=== PATIENT | male | born 1955 | race Caucasian/White ===

== ENCOUNTER 2020-04-04 13:34 | Emergency (ER) | payer SELFPAY ==
[2020-04-04 14:08] VITALS: BP 160/85; PULSE 117; RESP 16; TEMP 38.3; O2SAT 96; BMI 31.6
--- NOTE | 2020-04-04 14:27 | XRR_ITS ---
PROCEDURE INFORMATION: Exam: XR Chest, 1 View Exam date and time: 04/04/2020 2:53 PM Age: 64 years old Clinical indication: Type not specified; Patient HX: C/O indigestion; Getting tired easy; Chest pain TECHNIQUE: Imaging protocol: XR of the chest Views: 1 view. COMPARISON: No relevant prior studies available. FINDINGS: Lungs: Unremarkable. No consolidation. Pleural space: Unremarkable. No pleural effusion. No pneumothorax. Heart/Mediastinum: Unremarkable. No cardiomegaly. Bones/joints: Unremarkable. XR/XR chest 1V portable [id number] IMPRESSION: No acute findings.
[2020-04-04 15:19] LABS: Basophils # 0.1 10^3/uL (0.0-0.1); Basophils % 2.1 %; Eosinophils # 0.1 10^3/uL (0.0-0.8); Eosinophils % 1.4 %; Hematocrit 45.2 % (42.0-52.0); Hemoglobin 15.5 g/dL (11.7-16.6); Lymphocytes # 0.7 10^3/uL (0.8-4.8); Lymphocytes % 17.3 %; Mean Corpuscular HGB Conc 34.3 g/dL (30.0-36.0); Mean Corpuscular Hemoglobin 34.5 pg (28.0-34.0); Mean Corpuscular Volume 100.7 fL (80-94); Mean Platelet Volume 12.3 fL (7.4-10.4); Monocytes # 0.6 10^3/uL (0.2-0.9); Monocytes % 12.9 %; Neutrophils # 2.8 10^3/uL (1.8-7.7); Neutrophils % 66.1 %; Nucleated Red Blood Cells % 0 %; Platelet Count 75 10^3/cmm (130-400); Red Blood Count 4.49 10^6/uL (4.1-5.3); Red Cell Distribution Width 16.5 % (12.1-15.1); White Blood Count 4.3 10^3/uL (4.0-10.0)
[2020-04-04 15:40] LABS: Alanine Aminotransferase 125 U/L (0-41); Albumin Level 3.7 g/dL (3.5-5.2); Alkaline Phosphatase 136 IU/L (40-130); Anion Gap 15.7 (5-19); Aspartate Amino Transferase 206 U/L (0-40); Blood Urea Nitrogen 12 mg/dL (8-23); Calcium 9.8 mg/dL (8.5-10.5); Carbon Dioxide 25 mmol/L (22-29); Chloride 100 mmol/L (98-107); Globulin 4.2 g/dL (1.3-4.6); Glomerular Filtration Rate 67.4 mL/min (90-130); Glucose 172 mg/dL (65-115); Osmolality Calculated 284 mOsm/kg (285-295); Potassium 3.7 mmol/L (3.5-5.1); Sodium 137 mmol/L (136-145); Total Bilirubin 1.8 mg/dL (0.15-1.2); Total Protein 7.9 g/dL (6.6-8.7)
[2020-04-04 15:41] LABS: Troponin(5th) Baseline 10 ng/L (0-15)
--- NOTE | 2020-04-04 16:12 | USR_ITS ---
PROCEDURE INFORMATION: Exam: US Abdomen Complete Exam date and time: 04/04/2020 4:17 PM Age: 64 years old Clinical indication: Abdominal pain; Acute; Patient HX: PT here for weakness TECHNIQUE: Imaging protocol: Real-time ultrasound of the abdomen with image documentation. [place] [facility] [place]24/[place] 8:58 AM FINDINGS: Liver: Echodense liver parenchyma suggesting fibrofatty change. Liver measures 20.3 cm long. Gallbladder: Tumefactive sludge layering in dependent aspect of gallbladder along with several shadowing gallstones. There is no obvious gallbladder wall thickening. Common bile duct: Common bile duct measures 5.5 mm. Pancreas: Pancreas not well visualized. Right kidney: Right kidney measures 12.5 x 6.4 x 6.3 cm. No mass. No hydronephrosis. Left kidney: Left kidney measures 10.8 x 6.2 x 6.1 cm. Probable dromedary hump (normal variant) laterally. No hydronephrosis. Spleen: Mildly enlarged spleen measuring 15.8 cm long. Aorta: Aorta not well seen. Aorta measures 1.7 cm in diameter. Inferior vena cava: IVC not well seen. US/US abdomen complete* [id number] IMPRESSION: 1.) Enlarged echodense liver. 2.) Tumefactive sludge and gallstones layering in dependent aspect of gallbladder. 3.) Mildly enlarged spleen. Aorta, pancreas and IVC not well seen.
--- NOTE | 2020-04-04 16:28 | ECG_ITS ---
[facility] Test Date: 2020-04-04 Pat Name: Simeon Roland Department: Room: Gender: Male Finishing Operator: : 1955 Requested By: Pat Sims Order Number: [id number] Cecil MD: Bridget Silva M.D. Measurements Intervals [place] Rate: 110 P: 34 [place]: 138 QRS: 40 QRSD: 88 T: 50 QT: 323 QTc: 438 Interpretive Statements SINUS TACHYCARDIA No previous ECG available for comparison Electronically Signed On 04-04-2020 20:52:49 CDT by Bridget Silva M.D. [id number]
[2020-04-04 17:07] VITALS: BP 179/91; PULSE 110; RESP 40; TEMP 38.8; O2SAT 94
[2020-04-04 17:07] LABS: Troponin 5 2HR 8.82 ng/L (0-15)
[2020-04-04 17:08] LABS: Troponin 5 2HR Delta -1.18 ABS# (0-10)
[2020-04-04] MEDS: magnesium sulfate premix 2 GM/50 ML PIGGYBACK IV (17:23)
[2020-04-04] MEDS: acetaminophen 500 mg Tablet 1000 MG PO (17:23)
[2020-04-04] MEDS: sodium chloride 0.9% 1,000 ML 999 ML IV (17:26)
--- NOTE | 2020-04-04 17:28 | CTR_ITS ---
PROCEDURE INFORMATION: Exam: CT Abdomen And Pelvis With Contrast Exam date and time: 04/04/2020 5:44 PM Age: 64 years old Clinical indication: Abdominal pain; Acute; Prior surgery; Surgery date: 6+ months; Surgery type: Hernia TECHNIQUE: Imaging protocol: Computed tomography of the abdomen and pelvis with intravenous contrast. Radiation optimization: All CT scans at this facility use at least one of these dose optimization techniques: automated exposure control; mA and/or kV adjustment per patient size (includes targeted exams where dose is matched to clinical indication); or iterative reconstruction. Contrast material: OMNI; Contrast volume: 95 ml; Contrast route: INTRAVENOUS (IV); COMPARISON: US abdomen complete* [id number] 04/04/2020 4:09 PM RADIATION DOSE METRICS: Total DLP (mGy-cm): 1420.12 FINDINGS: Liver: Some of the liver margins have a nodular appearance suggesting cirrhosis. Right lobe measures 21 cm long. Heterogeneous liver parenchyma containing innumerable 3-5 mm hypodense areas. Appearance may simply be due to cirrhosis. Another possibility is hepatic peliosis. Metastatic disease or diffuse infiltrating HCC appear unlikely. Gallbladder and bile ducts: There are several 4-5 mm calcified gallstones layering in dependent aspect gallbladder. Pancreas: Normal. No ductal dilation. Spleen: Mildly enlarged spleen measuring 14.7 cm long. Adrenals: Normal. No mass. Kidneys and ureters: 3.2 cm right renal upper pole simple cyst. Stomach and bowel: Mild sigmoid colon diverticulosis changes. Appendix: No evidence of appendicitis. Intraperitoneal space: Unremarkable. No free air. No significant fluid collection. Vasculature: Probable portal hypertension with upper abdominal varices, recanalized umbilical vein and enlarged spleen. Lymph nodes: Unremarkable. No enlarged lymph nodes. Bladder: Unremarkable as visualized. Reproductive: Unremarkable as visualized. Bones/joints: Lower lumbar spine degenerative disc disease, chronic. Soft tissues: Unremarkable. CT/CT abdomen pelvis w con* [id number] IMPRESSION: 1.) No acute process evident. 2.) Cirrhosis and stigmata of portal hypertension. Heterogeneous liver parenchyma as described above. 3.) Gallstones. 4.) 3.2 cm right renal upper pole simple appearing cyst. Mild sigmoid colon diverticulosis changes. COMMENTS: Consistent with the [employer]'s Incidental Findings Committee white paper (J Am Sharri Radiol 2018): Any incidental renal lesion less than 1.0 cm or classified as too small to characterize, or any incidental cystic renal lesion characterized as simple-appearing, is likely benign. No follow-up imaging is recommended for these lesions per consensus recommendations based on imaging criteria. The Radiation Dose CTDIVOL = (mGy): DLP = 1420.12 (mGy-cm)
--- NOTE | 2020-04-04 17:32 | W.ED.WEAKNES ---
HPI - Weakness General: Chief complaint: Weakness Stated complaint: abnormal labs Time Seen by Provider: 04/04/20 15:55 Source: patient and family History of Present Illness: HPI Narrative: Mr. Graham is a nice 64-year-old male who comes in complaining of generalized weakness. He states since he fell on 02 March he is just been progressively getting more weak. His family states he has had a gradual decline to the point he does not want to eat or drink or do anything but sleep. He is unaware that he had a fever until he arrived here. The patient denies any focal headache, neck pain, chest pain, shortness of breath, abdominal pain, back pain, extremity pain or dysuria. Patient states he just feels weak but otherwise he has no other complaints and he is only here because of his family's insistence. Associated symptoms: Reports chills and fever(s); Denies chest pain, confusion, melena, diaphoresis, dysuria, easy bruising, headache(s), nausea, syncope or vomiting Review of Systems Const: Reports: fever(s), chills, body aches, change in appetite, fatigue and malaise; Denies: diaphoresis Eyes: Denies: change in vision, blurry vision, blind spots, photophobia, eye discharge or eye redness ENMT: Denies: throat pain, odynophagia, hoarseness, swelling of lips/tongue, oral sores, ear or mastoid pain, ear discharge, change in hearing or nasal discharge Card: Denies: chest pain, palpitations, irregular heart rhythm, edema, lightheadedness, syncope, pre-syncope, dyspnea on exertion or orthopnea Resp: Denies: dyspnea, productive cough, non-productive cough, wheezing, hemoptysis or chest congestion GI: Denies: abdominal pain, nausea, vomiting, hematemesis, coffee ground emesis, heartburn, diarrhea, constipation, GI cramping, hematochezia or melena : Denies: flank pain, dysuria, urinary frequency, urinary urgency or hematuria Musc: Denies: neck pain, back pain, extremity pain, extremity swelling, joint pain, joint swelling, joint redness, joint warmth or joint stiffness Skin/Breast: Denies: rash, pruritus, erythema, skin tenderness or jaundice Neuro: Denies: headache(s), numbness in extremities, weakness in extremities, sensory changes, lack of coordination, difficulty walking, dizziness, vertigo, confusion, Slurred speech present or seizure-like activity Jeremy/Lymph: Denies: easy bruising, easy bleeding, petechiae, purpura or enlarged lymph nodes All/Imm: Denies: urticaria, throat swelling, tongue swelling, facial swelling or acute wheezing PFSH ED PFSH: Medical History Hypertension Physical Exam Const: COMMON NORMALS: no acute distress, patient oriented x3, no limitations, healthy appearing and well nourished GENERAL APPEARANCE: cooperative, well kempt and well developed HENMT: COMMON NORMALS: normocephalic, atraumatic, external ears normal, EAC's normal and Normal external nose present HEAD & SCALP: normal to inspection, normocephalic and atraumatic FACE & SINUS: normal facial exam and face symmetric NOSE: Normal external nose present and Normal nares present EXTERNAL EAR: Yes external ears normal EXTERNAL AUDITORY CANAL: EAC's normal MOUTH: Normal oral and palatal mucosa present, lip normal and tongue normal Eye: COMMON NORMALS: Equal, round and reactive pupils present and conjunctivae normal GENERAL EYE: appearance normal, both eyes and all related structures ALIGNMENT: Yes alignment normal PERIORBITAL: periorbital findings normal EYELID: eyelids normal CONJUNCTIVA: Yes conjunctivae normal SCLERA: sclerae normal PUPIL: Yes Equal, round and reactive pupils present Neck/C-Spine: COMMON NORMALS: full ROM, no lymphadenopathy, supple, no meningeal signs and no JVD GENERAL: Yes normal visual inspection and Yes trachea midline Chest: COMMONS NORMALS: normal inspection of the chest and normal palpation of entire chest wall Resp: COMMON NORMALS: normal respiratory effort, No retractions and No use of accessory muscles EFFORT & INSPECTION: Yes able to speak in complete sentences and Yes symmetric chest movement AUSCULTATION: no crackles, no rales, no rhonchi and no wheezes Cardio: COMMON NORMALS: no JVD, regular rate, regular rhythm, S1 normal heart sound present and S2 normal heart sound present RATE: regular rate RHYTHM: regular rhythm HEART SOUNDS: S1 normal heart sound present, S2 normal heart sound present, no click, no gallops, no murmurs, no rubs and abnormal split S2 GI: COMMON NORMALS: Soft to palpation and No hepatosplenomegaly present PALPATION: Yes Soft to palpation, No Tenderness to palpation present (GI), No Guarding due to palpation present (GI), No Rigid due to palpation, Yes No hepatosplenomegaly present, No Hernia present, No Palpable mass present and No Pulsatile mass present : COMMON NORMALS: Yes no CVA tenderness BLADDER/KIDNEY EXAM: Yes no CVA tenderness Back/Pelvis: COMMON NORMALS: no CVA tenderness, thoracic and lumbar spine normal to inspection, no thoracic nor lumbar tenderness and thoraco-lumbar ROM normal Extremity: COMMON NORMALS: normal to inspection, full ROM, capillary refill normal, no joint enlargement, no clubbing, cyanosis or edema and no calf tenderness Neuro: COMMON NORMALS: patient oriented x3, CN's II-XII intact bilaterally, moves all extremities, no focal motor deficits and no sensory deficits noted MENINGEAL SIGNS: Yes no meningeal signs SPEECH: speech normal Psych: COMMON NORMALS: mental status grossly normal, Normal thought process present, cooperative, normal affect, speech normal and activity/motor behavior normal APPEARANCE: Yes well kempt SPEECH: Yes normal speech THOUGHT PROCESS: Normal thought process present Skin: COMMON NORMALS: no rashes or lesions noted, turgor normal, no jaundice, no petechiae and no mottling GENERAL SKIN EXAM: no rashes or lesions noted and turgor normal Course Vital Signs: Vital signs: Vital Signs Temperature 101.8 F H 04/04/20 17:39 Pulse Rate 103 H 04/04/20 19:21 Respiratory Rate 18 04/04/20 19:21 Blood Pressure 173/93 04/04/20 19:21 Pulse Oximetry 93 04/04/20 19:21 MDM - Weakness MDM Narrative: Medical decision making narrative: The patient has been worked up definitively. Ultrasound does not show any sign of acute cholecystitis and CT scan does not show any evidence of cholangitis. There is no sign of ascites on exam. The patient is now alert and oriented and has no complaints. He states he is feeling tremendously better and is insisting upon going home. I have informed him that I cannot definitively tell him was causing his fever or elevated liver enzymes and I believe he needs admitted to the hospital but he refuses. The patient is alert to person, place, time and situation. He appears to have more than the capacity to make these decisions. He wants to be discharged at this time. I have reviewed with him at length the risks of leaving and doing so including ultimately but he states he understands this and accepts these risks. His family is with him and although I do not believe they agree with him they do support him in his decision and understand that he is capable of doing that on his own at this time. They agree to return with him if his mental status changes or he worsens in any way. Lab Data: Attestation: I reviewed the patient's lab results. Labs: Lab Results 04/04/20 04/04/20 04/04/20 Range/Units 14:57 14:57 14:57 WBC 4.3 (4.0-10.0) 10^3/ uL RBC 4.49 (4.1-5.3) 10^6/u L Hgb 15.5 (11.7-16.6) g/dL Hct 45.2 (42.0-52.0) % MCV 100.7 H (80-94) fL MCH 34.5 H (28.0-34.0) pg MCHC 34.3 (30.0-36.0) g/dL RDW 16.5 H (12.1-15.1) % Plt Count 75 L (130-400) 10^3/c mm MPV 12.3 H (7.4-10.4) fL Neut % (Auto) 66.1 % Lymph % (Auto) 17.3 % [place] % (Auto) 12.9 % Eos % (Auto) 1.4 % Baso % (Auto) 2.1 % Neut # (Auto) 2.8 (1.8-7.7) 10^3/u L Lymph # (Auto) 0.7 L (0.8-4.8) 10^3/u L [place] # (Auto) 0.6 (0.2-0.9) 10^3/u L Eos # (Auto) 0.1 (0.0-0.8) 10^3/u L Baso # (Auto) 0.1 (0.0-0.1) 10^3/u L Nucleated RBC % (a uto) 0 % Nucleated RBCs # 0.0 /100WBC Sodium 137 (136-145) mmol/L Potassium 3.7 (3.5-5.1) mmol/L Chloride 100 (98-107) mmol/L Carbon Dioxide 25 (22-29) mmol/L Anion Gap 15.7 (5-19) BUN 12 (8-23) mg/dL Creatinine 1.1 (0.7-1.2) mg/dL GFR Calculation 67.4 L (90-130) mL/min Glucose 172 H (65-115) mg/dL Calculated Osmolal ity 284 L (285-295) mOsm/k g Lactate (0.5-2.2) mmol/L Calcium 9.8 (8.5-10.5) mg/dL Magnesium 1.0 L (1.7-2.3) mg/dL Total Bilirubin 1.8 H (0.15-1.2) mg/dL AST 206 H (0-40) U/L ALT 125 H (0-41) U/L Alkaline Phosphata se 136 H (40-130) IU/L Troponin T Baselin e 10 (0-15) ng/L Troponin T 120 Min [place] (0-15) ng/L Delta Troponin T (0-10) ABS# Total Protein 7.9 (6.6-8.7) g/dL Albumin 3.7 (3.5-5.2) g/dL Globulin 4.2 (1.3-4.6) g/dL Lipase (13-60) U/L Urine Color (Yellow) Urine Appearance (CLEAR) Urine pH (5-7) Ur Specific Gravit y (1.005-1.030) Urine Protein (Negative) Urine Glucose (UA) (Normal) Urine Ketones (Negative) Urine Blood (Negative) Urine Nitrate (Negative) Urine Bilirubin (NEGATIVE) Urine Urobilinogen (Negative) mg/dL Ur Leukocyte Feli ase (Negative) Urine RBC (0-2) /hpf Urine WBC (0-5) /hpf Ur Squamous Epith Cells (0-5) Urine Bacteria (NONE) Acetaminophen (10-30) ug/mL Hepatitis A IgM Ab (Nonreactive) Hep Bs Antigen (Nonreactive) Hep Bs Antibody (0-8.5) Hep B Core Total A b (Nonreactive) Hepatitis C Antibo dy (Nonreactive) 04/04/20 04/04/20 04/04/20 Range/Units 14:57 14:57 14:57 WBC (4.0-10.0) 10^3/ uL RBC (4.1-5.3) 10^6/u L Hgb (11.7-16.6) g/dL Hct (42.0-52.0) % MCV (80-94) fL MCH (28.0-34.0) pg MCHC (30.0-36.0) g/dL RDW (12.1-15.1) % Plt Count (130-400) 10^3/c mm MPV (7.4-10.4) fL Neut % (Auto) % Lymph % (Auto) % [place] % (Auto) % Eos % (Auto) % Baso % (Auto) % Neut # (Auto) (1.8-7.7) 10^3/u L Lymph # (Auto) (0.8-4.8) 10^3/u L [place] # (Auto) (0.2-0.9) 10^3/u L Eos # (Auto) (0.0-0.8) 10^3/u L Baso # (Auto) (0.0-0.1) 10^3/u L Nucleated RBC % (a uto) % Nucleated RBCs # /100WBC Sodium (136-145) mmol/L Potassium (3.5-5.1) mmol/L Chloride (98-107) mmol/L Carbon Dioxide (22-29) mmol/L Anion Gap (5-19) BUN (8-23) mg/dL Creatinine (0.7-1.2) mg/dL GFR Calculation (90-130) mL/min Glucose (65-115) mg/dL Calculated Osmolal ity (285-295) mOsm/k g Lactate (0.5-2.2) mmol/L Calcium (8.5-10.5) mg/dL Magnesium (1.7-2.3) mg/dL Total Bilirubin (0.15-1.2) mg/dL AST (0-40) U/L ALT (0-41) U/L Alkaline Phosphata se (40-130) IU/L Troponin T Baselin e (0-15) ng/L Troponin T 120 Min [place] (0-15) ng/L Delta Troponin T (0-10) ABS# Total Protein (6.6-8.7) g/dL Albumin (3.5-5.2) g/dL Globulin (1.3-4.6) g/dL Lipase 172 H (13-60) U/L Urine Color (Yellow) Urine Appearance (CLEAR) Urine pH (5-7) Ur Specific Gravit y (1.005-1.030) Urine Protein (Negative) Urine Glucose (UA) (Normal) Urine Ketones (Negative) Urine Blood (Negative) Urine Nitrate (Negative) Urine Bilirubin (NEGATIVE) Urine Urobilinogen (Negative) mg/dL Ur Leukocyte Feli ase (Negative) Urine RBC (0-2) /hpf Urine WBC (0-5) /hpf Ur Squamous Epith Cells (0-5) Urine Bacteria (NONE) Acetaminophen < 5.0 L (10-30) ug/mL Hepatitis A IgM Ab Non-reactive (Nonreactive) Hep Bs Antigen Non-reactive (Nonreactive) Hep Bs Antibody 3.5 (0-8.5) Hep B Core Total A b Non-reactive (Nonreactive) Hepatitis C Antibo dy Reactive H (Nonreactive) 04/04/20 04/04/20 04/04/20 Range/Units 14:58 16:45 19:05 WBC (4.0-10.0) 10^3/ uL RBC (4.1-5.3) 10^6/u L Hgb (11.7-16.6) g/dL Hct (42.0-52.0) % MCV (80-94) fL MCH (28.0-34.0) pg MCHC (30.0-36.0) g/dL RDW (12.1-15.1) % Plt Count (130-400) 10^3/c mm MPV (7.4-10.4) fL Neut % (Auto) % Lymph % (Auto) % [place] % (Auto) % Eos % (Auto) % Baso % (Auto) % Neut # (Auto) (1.8-7.7) 10^3/u L Lymph # (Auto) (0.8-4.8) 10^3/u L [place] # (Auto) (0.2-0.9) 10^3/u L Eos # (Auto) (0.0-0.8) 10^3/u L Baso # (Auto) (0.0-0.1) 10^3/u L Nucleated RBC % (a uto) % Nucleated RBCs # /100WBC Sodium (136-145) mmol/L Potassium (3.5-5.1) mmol/L Chloride (98-107) mmol/L Carbon Dioxide (22-29) mmol/L Anion Gap (5-19) BUN (8-23) mg/dL Creatinine (0.7-1.2) mg/dL GFR Calculation (90-130) mL/min Glucose (65-115) mg/dL Calculated Osmolal ity (285-295) mOsm/k g Lactate 2.0 (0.5-2.2) mmol/L Calcium (8.5-10.5) mg/dL Magnesium (1.7-2.3) mg/dL Total Bilirubin (0.15-1.2) mg/dL AST (0-40) U/L ALT (0-41) U/L Alkaline Phosphata se (40-130) IU/L Troponin T Baselin e (0-15) ng/L Troponin T 120 Min [place] 8.82 (0-15) ng/L Delta Troponin T -1.18 L (0-10) ABS# Total Protein (6.6-8.7) g/dL Albumin (3.5-5.2) g/dL Globulin (1.3-4.6) g/dL Lipase (13-60) U/L Urine Color Yellow (Yellow) Urine Appearance Clear (CLEAR) Urine pH 7 (5-7) Ur Specific Gravit y 1.005 (1.005-1.030) Urine Protein 1+ H (Negative) Urine Glucose (UA) 1+ (Normal) Urine Ketones Negative (Negative) Urine Blood Neg (Negative) Urine Nitrate Negative (Negative) Urine Bilirubin Neg (NEGATIVE) Urine Urobilinogen 4 H (Negative) mg/dL Ur Leukocyte Feli ase Negative (Negative) Urine RBC None (0-2) /hpf Urine WBC 0-4 H (0-5) /hpf Ur Squamous Epith Cells None (0-5) Urine Bacteria Trace (NONE) Acetaminophen (10-30) ug/mL Hepatitis A IgM Ab (Nonreactive) Hep Bs Antigen (Nonreactive) Hep Bs Antibody (0-8.5) Hep B Core Total A b (Nonreactive) Hepatitis C Antibo dy (Nonreactive) Imaging Data^: CXR: My impression: No acute cardiopulmonary findings. US: Radiologist's impression: [address] [place] [address] Ultrasound Report Signed Patient: Simeon Graham Unit #: [id number] : 1955 Age/Sex: 64 / M ADM Date: 04/04/20 Loc: ER Room/Bed: Attending Dr: Ordering Provider/Ordering MD: Shakira Erwin DO Date of Service: 04/04/20 Procedure(s): US abdomen complete* [id number] Accession Number(s): [id number] Report Number: [id number] PROCEDURE INFORMATION: Exam: US Abdomen Complete Exam date and time: 04/04/2020 4:17 PM Age: 64 years old Clinical indication: Abdominal pain; Acute; Patient HX: PT here for weakness TECHNIQUE: Imaging protocol: Real-time ultrasound of the abdomen with image documentation. COMPARISON: [facility] [place] Abdomen 11/24/2016 8:58 AM FINDINGS: Liver: Echodense liver parenchyma suggesting fibrofatty change. Liver measures 20.3 cm long. Gallbladder: Tumefactive sludge layering in dependent aspect of gallbladder along with several shadowing gallstones. There is no obvious gallbladder wall thickening. Common bile duct: Common bile duct measures 5.5 mm. Pancreas: Pancreas not well visualized. Right kidney: Right kidney measures 12.5 x 6.4 x 6.3 cm. No mass. No hydronephrosis. Left kidney: Left kidney measures 10.8 x 6.2 x 6.1 cm. Probable dromedary hump (normal variant) laterally. No hydronephrosis. Spleen: Mildly enlarged spleen measuring 15.8 cm long. Aorta: Aorta not well seen. Aorta measures 1.7 cm in diameter. Inferior vena cava: IVC not well seen. US/US abdomen complete* [id number] IMPRESSION: 1.) Enlarged echodense liver. 2.) Tumefactive sludge and gallstones layering in dependent aspect of gallbladder. 3.) Mildly enlarged spleen. Aorta, pancreas and IVC not well seen. Dictated By: Baldo Gomez MD Signed By: Baldo Gomez MD Signed Date/Time: 04/04/20 172 DD/ EKG Data^: EKG 1: Attestation: I personally reviewed and interpreted this EKG as follows: EKG interpretation date: 04/04/20 EKG interpretation time: 17:07 Interpretation: Normal sinus rhythm at 110 beats a minute, no acute ST-T wave changes. Discharge Plan Discharge Patient Disposition: Left Against Medical Advice Clinical Impression: Elevated liver enzymes Fever Qualifiers: Fever type: unspecified Qualified Code(s): R50.9 - Fever, unspecified Hepatitis C Qualifiers: Viral hepatitis chronicity: unspecified Hepatic coma status: without hepatic coma Qualified Code(s): B19.20 - Unspecified viral hepatitis C without hepatic coma Condition: Stable Prescriptions: New doxycycline hyclate 100 mg capsule 100 mg PO BID 10 Days Qty: 20 RF: 0 No Action multivitamin Tablet 1 tab PO DAILY RF: 0 cyclobenzaprine 10 mg Tablet 10 mg PO BEDTIME RF: 0 meloxicam 7.5 mg Tablet 7.5 mg PO DAILY RF: 0 losartan-hydrochlorothiazide 100-25 mg Tablet 1 tab PO DAILY RF: 0 losartan 100 mg Tablet 100 mg PO DAILY RF: 0 Discharge Orders: Discharge Order (Routine); Ordered 04/04/20 Ordered By: Shakira Erwin Referrals: Gareth Guevara DO [Family Provider] - 1-3 days Leticia Mane FNP [Primary Care Provider] - Discharge Diet: Advance as tolerated Discharge Activity: Increase activity as tolerated Patient Instructions: Fever in Adults (ED) Activity Restrictions/Additional Instructions: You're leaving AGAINST MEDICAL ADVICE and are at risk for or severe permanent disability by doing so. You are more than welcome to return at any time for recheck and for further evaluation and care suture change you change your mind. A definitive cause for your fever has not been determined. By leaving you are at risk of or severe permanent disability without further work-up including admission to the hospital. If you change your mind, your symptoms worsen, or you develop any new problems you are more than welcome to return to the ER at any time for further evaluation and care. Be certain to follow-up with Dr. Guevara as soon as possible for recheck. Stand Alone Forms: Against Medical Advice Coding Level of Care Code ED [employer] for Chg Fwd Exam Comprehensive
[2020-04-04 17:39] VITALS: BP 169/90; PULSE 112; RESP 20; TEMP 38.8; O2SAT 96
[2020-04-04 18:08] LABS: Acetaminophen < 5.0 ug/mL (10-30); Lipase 172 U/L (13-60)
[2020-04-04] MEDS: iohexol 300 mg/mL 100 mL Btl 95 ML IV (18:22)
[2020-04-04 18:28] LABS: Hepatitis A Antibody IgM Non-Reactive (Nonreactive); Hepatitis B Core AB, Total Non-Reactive (Nonreactive); Hepatitis B Surface AB 3.5 (0-8.5); Hepatitis B Surface Antigen Non-Reactive (Nonreactive)
[2020-04-04 19:04] LABS: Hepatitis C Virus Antibody Reactive (Nonreactive)
[2020-04-04] MEDS: cefTRIAXone 1,000 MG in sodium chloride 0.9% (plus) 50 ML 100 MG IV (19:10)
[2020-04-04] MEDS: doxycycline 100 MG in sodium chloride 0.9% (plus) 100 ML IV (19:11)
[2020-04-04 19:16] LABS: Bilirubin Urine Neg (NEGATIVE); Blood Urine Neg (Negative); Glucose Urine UA 1+ (Normal); Ketones Urine Negative (Negative); Leukocyte Esterase Urine Negative (Negative); Nitrate Urine Negative (Negative); Protein Urine 1+ (Negative); Specific Gravity, Urine 1.005 (1.005-1.030); Urine Appearance Clear (CLEAR); Urine Color Yellow (Yellow); Urobilinogen Urine 4 mg/dL (Negative); pH Urine 7 (5-7)
[2020-04-04 19:17] LABS: Add Urine Culture? No; Bacteria Urine TRACE; WBC Urine 0-4 /hpf (0-5)
[2020-04-04 19:21] VITALS: BP 173/93; PULSE 103; RESP 18; O2SAT 93
--- NOTE | 2020-04-04 19:29 | PC.NURSE ---
care and report given to Rachel URENA
[2020-04-04 19:55] LABS: Influenza A by IFA Negative (Negative); Influenza B by IFA Negative (Negative)
[2020-04-04 20:25] VITALS: BP 171/98; PULSE 105; RESP 22; O2SAT 94
[2020-04-08 13:30] LABS: Lyme AB Screen <0.90 index
[2020-04-09 17:24] LABS: E. Chaffeensis AB IGG <1:64; E. Chaffeensis AB IGM <1:20
[2020-04-11 16:45] LABS: RMSF IGG DETECTED; RMSF IGM NOT DETECTED
== END 2020-04-04 20:29 | disposition left against medical advice (07) ==
PROVIDERS: Physician Assistant; Emergency Provider Emergency Medicine; Family Provider Internal Medicine; PCP Nurse Practitioner Family
DX: B19.20 Unspecified viral hepatitis C without hepatic coma (principal); R50.9 Fever, unspecified; R74.8 Abnormal levels of other serum enzymes; Z53.21 Procedure and treatment not carried out due to patient leaving prior to being seen by health care provider; I10 Essential (primary) hypertension
CPT/HCPCS: 12345; 36415; 71045; 74177; 76700; 80053; 80307; 81001; 83605; 83690; 83735; 84484; 85025; 86618; 86666; 86705; 86706; 86709; 86757; 86803; 87040; 87340; 87804; 93005; 96365; 96367; 96375; 99284; J0696; J3475; J3490; J7030; J7050; Q9967

== ENCOUNTER → 2020-05-15 15:47 | Outpatient (BNVA) | payer SELFPAY | PROVIDERS: Family Provider Internal Medicine; PCP Nurse Practitioner Family; Visit Provider Internal Medicine | DX: B18.2 Chronic viral hepatitis C (principal); E11.9 Type 2 diabetes mellitus without complications; K74.60 Unspecified cirrhosis of liver; I10 Essential (primary) hypertension; Z12.11 Encounter for screening for malignant neoplasm of colon | CPT/HCPCS: 80053; 82105; 85025 ==

== ENCOUNTER 2020-05-20 09:04 | Day surgery (SDC) | payer SELFPAY ==
[2020-05-17 16:59] VITALS: BMI 32.6
[2020-05-20] MEDS: sodium chloride 0.9% 1,000 ML 30 ML IV (09:29)
--- NOTE | 2020-05-20 10:07 | ANES.PREANE2 ---
Pre-Anesthetic Assessment Pre-Anesthetic Assessment: Height/Weight: Height 1.73 m Weight 97.522 kg Preop Diagnosis: screen Proposed Procedure: Operation Date: 05/20/20 10:30 Proposed Procedures p Colonoscopy 19837 Z12.11(Not Applicable) - David Hutson MD Was Beta Jason taken within 24 hours: N/A Last intake: Intake Last Liquid Date 05/19/20 Last Liquid Time 23:55 Last Solid Date 05/18/20 Social: Social History: Alcohol and No tobacco Exam: Pre-Anes Outpt Exam: alert, oriented x 3, clear to auscultation bilaterally and regular rate & rhythm Airway: Submandibular: WNL Cervical ROM: WNL MP: 2 Dentition: Chipped and Loose Additional comments: Very poor dentition, several chipped and missing--upper incisors loose. Pulmonary: Pulmonary: None reported CV/HEM: CV/HEM: Anemia and HTN : : None reported Hepatic: Hepatic: Cirrohsis and Hepatitis Comments: Hep C Metabolic: Metabolic: None reported Musc/skel: Musc/skel: None reported Neuropsych: Neuropsych: None reported Anesthetic Plan: ASA status: 3 Anesthesia: MAC Meds/Allergies Current Medications: Current Medications Generic Name Dose Route Start Last Admin Trade Name Freq PRN Reason Stop Dose Admin Sodium Chloride 1,000 mls @ 30 ml s/hr 05/20/20 09:30 05/20/20 09:29 Sodium Chloride 0.9% IV 30 mls/hr .Q24H GINNY Administration PFSH Anesthesia PFSH: Medical History (Updated 05/15/20 @ 13:45 by David Hutson MD) Hypertension Family History (Updated 05/15/20 @ 13:13 by SHILOH Hugo) Sister Cancer Social History (Updated 05/15/20 @ 13:14 by SHILOH Hugo) Smoking and tobacco status: never smoked Alcohol intake: current Alcohol intake frequency: few times a month Alcohol type: hard liquor service: No History of recent travel: No Current gender identity: Male Data Anesthesia Cardiac Studies: No Data to Display
--- NOTE | 2020-05-20 10:13 | W.PM.OPSUD ---
Surgery/Procedure H&P Update DATE OF PROCEDURE: May 20, 2020 DATE H&P PERFORMED: 05/15/20 PREOP DIAGNOSIS: screen PLANNED PROCEDURE: Operation Date: 05/20/20 10:30 Proposed Procedures p Colonoscopy 30885 Z12.11(Not Applicable) - David Hutson MD
[2020-05-20 10:27] VITALS: BP 127/79; PULSE 94; RESP 16; TEMP 36.6; O2SAT 94
--- NOTE | 2020-05-20 10:31 | ANE.PACU2 ---
Inpatient post-anesthesia follow up: Airway intact: Yes Vital signs: Temperature Pulse Rate Respiratory Rate Blood Pressure Pulse Oximetry Oxygen Delivery Me thod Oxygen Flow Rate Fraction of Inspir ed Oxygen Hydration adequate: Yes Nausea and vomiting: No Pain level: 1 Mental status: Baseline
[2020-05-20 10:45] VITALS: BP 165/92; PULSE 97; RESP 18; O2SAT 99
== END 2020-05-20 10:55 | disposition home or self-care (01) ==
PROVIDERS: PCP Nurse Practitioner Family; Visit Provider Internal Medicine
PROC: 0DJD8ZZ Inspection of Lower Intestinal Tract, Via Natural or Artificial Opening Endoscopic (ICD-10-PCS; CPT 45378; principal; 2020-05-20 10:30)
DX: Z12.11 Encounter for screening for malignant neoplasm of colon (principal); D12.4 Benign neoplasm of descending colon; K57.30 Diverticulosis of large intestine without perforation or abscess without bleeding; I10 Essential (primary) hypertension; K74.60 Unspecified cirrhosis of liver; B19.20 Unspecified viral hepatitis C without hepatic coma; D64.9 Anemia, unspecified
CPT/HCPCS: 12345; 45385; 88305; J2704; J7030

== ENCOUNTER → 2020-07-01 13:20 | Outpatient (BNVA) | payer SELFPAY | PROVIDERS: PCP Nurse Practitioner Family; Visit Provider Internal Medicine | DX: B18.2 Chronic viral hepatitis C (principal) | CPT/HCPCS: 87522 ==

== ENCOUNTER 2021-02-04 11:43 | Outpatient (CLI) | payer MEDICARE, SELFPAY ==
--- NOTE | 2021-02-04 12:05 | XRR_ITS ---
PROCEDURE INFORMATION: Exam: XR Left Shoulder Exam date and time: 02/04/2021 12:15 PM Age: 65 years old Clinical indication: Pain; Left; Patient HX: No current trauma, as a teenager dislocated shoulder; Additional info: Left shoulder pain TECHNIQUE: Imaging protocol: XR Left shoulder. Views: 2 or more views. COMPARISON: [facility] Extremity LEFT Limited 11/12/2016 1:23 PM FINDINGS: Bones/joints: Calcification projects in the rotator cuff tendon consistent with a tendinitis. No fracture or other acute abnormalities are seen. There are no other significant degenerative changes. Soft tissues: Normal. XR/XR shoulder LT min 2V* [id number] IMPRESSION: Calcific tendinitis. No acute abnormality.
== END 2021-02-04 11:44 | disposition home or self-care (01) ==
PROVIDERS: PCP Nurse Practitioner Family; Visit Provider Nurse Practitioner Family
DX: M25.512 Pain in left shoulder (principal); M65.222 Calcific tendinitis, left upper arm
CPT/HCPCS: 73030

== ENCOUNTER → 2021-02-13 12:38 | Outpatient (BNVA) | payer MEDICARE, SELFPAY | PROVIDERS: PCP Nurse Practitioner Family; Visit Provider Surgery | DX: Z01.812 Encounter for preprocedural laboratory examination (principal); Z20.822 Contact with and (suspected) exposure to COVID-19 | CPT/HCPCS: 87635 ==

== ENCOUNTER 2021-02-17 11:43 | Outpatient (RCR) | payer MEDICARE, SELFPAY | END 2021-03-03 23:59 | disposition home or self-care (01) | LOC: SPT 11:43 | PROVIDERS: PCP Nurse Practitioner Family; Referring Provider Nurse Practitioner Family; Visit Provider Nurse Practitioner Family | DX: M25.512 Pain in left shoulder (principal) | CPT/HCPCS: 97110; 97162 ==

== ENCOUNTER 2021-02-18 10:49 | Day surgery (SDC) | payer MEDICARE, SELFPAY ==
[2021-02-17 11:12] VITALS: BMI 33.0
[2021-02-18 11:08] VITALS: BP 135/71; PULSE 58; RESP 18; TEMP 36.4; O2SAT 97
[2021-02-18] MEDS: sodium chloride 0.9% 1,000 ML 30 ML IV (11:18)
[2021-02-18] MEDS: acetaminophen 1,000 MG/100 ML PIGGYBACK 400 MG IV (11:22)
--- NOTE | 2021-02-18 13:01 | P.ANESASSM_ITS ---
Pre-Anesthetic Assessment Pre-Anesthetic Assessment: Height/Weight: Height 1.73 m Weight 98.43 kg Temp Pulse Resp BP Pulse Ox 97.5 F L 58 L 18 135/71 97 02/18/21 11:08 02/18/21 11:08 02/18/21 11:08 02/18/21 11:08 02/18/21 11:08 Preop Diagnosis: Left arm mass Proposed Procedure: Operation Date: 02/18/21 12:20 Proposed Procedures p exiscion of left arm mass 12151 r22.32(Left) - Homer Noriega MD Was Beta Jason taken within 24 hours: Yes Was Clonidine taken within 24 hours: N/A Last intake: Intake Last Liquid Date 02/17/21 Last Liquid Time 23:45 Last Solid Date 02/17/21 Last Solid Time 20:30 Social: Social History: Alcohol and Tobacco (Chewing Tobacco) Exam: Pre-Anes Outpt Exam: alert, oriented x 3, clear to auscultation bilater ally and regular rate & rhythm Airway: Submandibular: WNL Cervical ROM: WNL MP: 2 Dentition: Chipped Additional comments: Profound dental disease Pulmonary: Pulmonary: COPD CV/HEM: CV/HEM: HTN : : None reported Hepatic: Hepatic: Cirrohsis GI: GI: None reported Metabolic: Metabolic: None reported Musc/skel: Musc/skel: None reported Neuropsych: Neuropsych: None reported Anesthetic Plan: ASA status: 3 Anesthesia: MAC Meds/Allergies Current Medications: Current Medications Generic Name Dose Route Start Last Admin Trade Name Freq PRN Reason Stop Dose Admin Sodium Chloride 1,000 mls @ 30 ml s/hr 02/18/21 11:00 02/18/21 11:18 Sodium Chloride 0.9% IV 02/19/21 10:59 30 mls/hr .Q24H GINNY Administration PFSH Anesthesia PFSH: Medical History Hypertension Family History Sister Cancer Social History Smoking and tobacco status: never smoked Alcohol intake: current Alcohol intake frequency: few times a month Alcohol type: hard liquor service: No History of recent travel: No Current gender identity: Male Data Anesthesia Cardiac Studies: No Data to Display
--- NOTE | 2021-02-18 13:14 | W.PM.OPSUD ---
Surgery/Procedure H&P Update DATE OF PROCEDURE: February 18, 2021 DATE H&P PERFORMED: 02/13/21 H&P UPDATE INFORMATION: I have reviewed H&P completed within last 30 days, I have examined patient prior to procedure and No changes to prior documentation PREOP DIAGNOSIS: Left arm mass PRIMARY INDICATION FOR PROCEDURE: THE SAME PLANNED PROCEDURE: Operation Date: 02/18/21 12:20 Proposed Procedures p exiscion of left arm mass 20768 r22.32(Left) - Homer Noriega MD
[2021-02-18] MEDS: lidocaine 2% INJ 20 mL INJECTION (13:59)
--- NOTE | 2021-02-18 14:23 | PM.OP ---
Operative Report Date of procedure: February 18, 2021 Pre-op Diagnosis: Left arm mass Post-op diagnosis: same (Lipoma of the left arm) Post-op Findings: Subcutaneous lipoma of the left arm 6 x 4 x 2.5 cm Procedure Done: Excision of left arm mass Specimens removed/disposition: Short sutures superior and long sutures marked lateral Lipoma of the left arm Surgeon: Homer Noriega Background Investigator: environmental monitoring technician Jody and medical student Cris Marshall Circulating nurse Ju Anesthesia: MAC (oracle soa architect Irving and Jana) Estimated blood loss (mL): 5 Condition: stable Disposition: same day Brief History: Symptomatic left arm mass, full H&P informed consent per chart. Procedure: After identifying the patient holding area, the left arm was marked before the procedure by myself, patient was then taken to the operative suite, was placed in supine position, IV propofol was infused by the anesthesia, prophylactic IV antibiotics were given per protocol,Patient was placed in the right lateral position and all pressure points were padded and patient was appropriately secured to the bed. prep and drape of the left upper extremity region was done under the usual sterile technique. Time-out was done verifying the patient's name/date of /planned procedure and destination after the procedure, all were in agreement. After palpation of the left arm mass, I did an Oblique longitudinal (Following the dermatomal distribution )incision on top of the mass corresponding to the skin crease,dissection was carried after the skin incision all the way to the subcutaneous tissues,Lipoma-like mass was enucleated from the surrounding pseudocapsuleWas excised entirely. short sutures marked superior and long sutures marked lateral, the specimen was then passed to the circulating nurse for permanent pathology. Subcutaneous lipoma of the left arm 6 x 4 x 2.5 cm Thorough irrigation of the cavity was done and hemostasis, followed by deep dermal closure by 2-0 Vicryl, then 4-0 Monocryl for skin closure. Lidocaine 2% was injected at the site of the incision,ffollowed by Dermabond dry dressing and Olivier wrap Patient tolerated the procedure well, count of instruments, needles and sponges were completed at the end of the procedure. And then patient was taken to the recovery area in stable condition. I Was present for the whole entire procedure
[2021-02-18 14:28] VITALS: BP 161/78; PULSE 63; RESP 18; TEMP 37.1; O2SAT 94
[2021-02-18 14:30] VITALS: BP 159/76; PULSE 63; RESP 16; O2SAT 94
[2021-02-18 14:35] VITALS: BP 182/88; PULSE 58; RESP 17; TEMP 36.3; O2SAT 94
[2021-02-18 14:47] VITALS: BP 178/84; PULSE 62; RESP 18; TEMP 36.3; O2SAT 91
--- NOTE | 2021-02-18 14:58 | ANE.PACU2 ---
Inpatient post-anesthesia follow up: Airway intact: Yes Vital signs: Temperature 97.4 F Pulse Rate 62 Respiratory Rate 18 Blood Pressure 178/84 Pulse Oximetry 91 Oxygen Delivery Me thod Room Air Oxygen Flow Rate Fraction of Inspir ed Oxygen Hydration adequate: Yes Nausea and vomiting: No Pain level: 1 Mental status: Baseline
[2021-02-18 15:17] VITALS: BP 164/87; PULSE 58; RESP 18; O2SAT 94
== END 2021-02-18 15:30 | disposition home or self-care (01) ==
PROVIDERS: PCP Nurse Practitioner Family; Visit Provider Surgery
PROC: (CPT 11406; principal; 2021-02-18 12:10)
DX: D17.22 Benign lipomatous neoplasm of skin and subcutaneous tissue of left arm (principal); J44.9 Chronic obstructive pulmonary disease, unspecified; I10 Essential (primary) hypertension; F17.220 Nicotine dependence, chewing tobacco, uncomplicated
CPT/HCPCS: 11406; 12032; 88307; 96365; J0690; J2704; J3010; J7030

== ENCOUNTER 2021-03-04 06:00 | Outpatient (RCR) | payer MEDICARE, SELFPAY | END 2021-04-02 23:59 | disposition home or self-care (01) | LOC: SPT 06:00 | PROVIDERS: PCP Nurse Practitioner Family; Referring Provider Nurse Practitioner Family; Visit Provider Nurse Practitioner Family | DX: M25.512 Pain in left shoulder (principal) | CPT/HCPCS: 97110 ==

== ENCOUNTER → 2021-03-20 15:50 | Outpatient (BNVA) | payer MEDICARE, SELFPAY | PROVIDERS: PCP Nurse Practitioner Family; Visit Provider Nurse Practitioner Family | DX: K74.60 Unspecified cirrhosis of liver (principal); Z00.00 Encounter for general adult medical examination without abnormal findings; B18.2 Chronic viral hepatitis C | CPT/HCPCS: 80053; 83880; 85025; 87522 ==

== ENCOUNTER 2021-09-12 14:07 | Outpatient (CLI) | payer MEDICARE, SELFPAY ==
--- NOTE | 2021-09-12 14:13 | USCV_ITS ---
Simeon Roland Age: 65 Gender: M : 1955 Exam Date: 09/12/2021 14:35 Ordering Phys: Moshe Bender Technologist: LYNDA Exam Location: [facility] [place] Indication: c/o BLE edema, shortness of breath. BP: / HR: 87 Rhythm: Sinus Technical Quality: Adequate MEASUREMENTS (Male / Female) Normal Values 2D ECHO LV Diastolic Diameter PLAX 5.3 cm 4.2 - 5.9 / 3.9 - 5.3 cm LV Systolic Diameter PLAX 3.1 cm IVS Diastolic Thickness 1.1 cm 0.6 - 1.0 / 0.6 - 0.9 cm IVS Systolic Thickness 1.5 cm LVPW Diastolic Thickness 1.3 cm 0.6 - 1.0 / 0.6 - 0.9 cm LVPW Systolic Thickness 1.4 cm LVOT Diameter 1.9 cm LV Ejection Fraction 2D Teich 68.0 % LV Ejection Fraction MOD 2C 59.0 % LV Ejection Fraction 2C AL 59.5 % LA Diameter 3.9 cm LA Width 4.0 cm LA Height 6.5 cm RA Width 2.6 cm RA Height 4.9 cm Aorta at Sinotubular Diameter 2.9 cm M-MODE Aortic Annulus Diameter 3.0 cm LA Ao Ratio MM 1.4 MV E Point Septal Separation 0.4 cm DOPPLER AV Peak Velocity 170.0 cm/s LVOT Peak Velocity 158.0 cm/s AV Area Cont Eq vti 2.3 cm squared AV Area Cont Eq pk 2.6 cm squared MV Peak Velocity 105.0 cm/s MV Area PHT 3.6 cm squared Mitral E to A Ratio 0.9 MV E' Velocity 57.5 cm/s Mitral E to MV E' Ratio 6.3 Mitral E to LV E' Lateral Ratio 5.8 Mitral E to LV E' Septal Ratio 6.8 TR Peak Velocity 263.0 cm/s TR Peak Gradient 27.7 mmHg TV Peak E Velocity 55.0 cm/s Right Atrial Pressure 3.0 mmHg Pulmonary Artery Systolic Pressu 30.7 mmHg PV Peak Velocity 111.0 cm/s RV Acceleration Time 0.1 s RV Ejection Time 0.3 s RV AcT/ET 0.2 FINDINGS Left Ventricle Normal left ventricular size and systolic function, EF 66 %. No regional wall motion abnormalities. Right Ventricle Possibly of normal size ejection fraction Right Atrium The right atrium is normal in size. Left Atrium The left atrium is normal in size. Mitral Valve Thickened mitral valves. Moderate calcification was noted in the leaflets Aortic Valve Thickened aortic valve. Tricuspid Valve Mild tricuspid valve regurgitation. Pulmonic Valve No gross abnormalities noted Pericardium Moderate to large echolucent area in the posterolateral side of the ventricle with echogenic strands, may suggest exudative pleural effusion. Aorta Normal ascending aorta dimension. CONCLUSIONS Normal left ventricular size and systolic function, EF 66 %. No regional wall motion abnormalities. Features of moderate to large left-sided pleural effusion. Thickened mitral valves. Moderate calcification was noted in the leaflets. Mild tricuspid valve regurgitation. Thickened aortic valve. Estimated pulmonary artery peak systolic pressure 31 mmHg No significant pericardial effusion. No previous studies are available for comparison. Dr. Navarrete was informed about this finding Dr Kale Monson MD [facility] (Electronically Signed) Final Date: 12 September 2021 17:05 S
== END 2021-09-12 14:08 | disposition home or self-care (01) ==
LOC: US 14:10
PROVIDERS: PCP Clinical Nurse Specialist Adult Health; Visit Provider Clinical Nurse Specialist Adult Health
DX: R60.0 Localized edema (principal); R06.02 Shortness of breath; I08.3 Combined rheumatic disorders of mitral, aortic and tricuspid valves
CPT/HCPCS: 93306

== ENCOUNTER 2021-09-16 13:42 | Outpatient (CLI) | payer MEDICARE, SELFPAY ==
--- NOTE | 2021-09-16 13:47 | XR_ITS ---
WS: [id number] CHEST 2 VIEWS HISTORY: SHORTNESS OF BREATH COMPARISON: 04/04/2020. PA and LEFT lateral chest radiograph performed. Lungs: Blunting of the LEFT costophrenic angle. Linear areas of atelectasis in the lingula and LEFT l ower lung field. Very minimal linear stranding in the central RIGHT lung. No pneumothorax. With the L EFT lateral decubitus film there is layering of a small LEFT pleural effusion which is mobile. Cardiac size: Mildly enlarged cardiac silhouette. Mediastinum/Aorta: Normal mediastinum. Bones: Normal. XR/XR chest 2V* [id number] IMPRESSION: 1. Small layering mobile LEFT pleural effusion. 2. Minimal atelectasis at the lung bases, LEFT greater than RIGHT.
== END 2021-09-16 13:43 | disposition home or self-care (01) ==
PROVIDERS: PCP Clinical Nurse Specialist Adult Health; Visit Provider Clinical Nurse Specialist Adult Health
DX: R06.02 Shortness of breath (principal); J90 Pleural effusion, not elsewhere classified; J98.11 Atelectasis
CPT/HCPCS: 71046

== ENCOUNTER 2021-11-13 06:00 | Outpatient (RCR) | payer MEDICARE, SELFPAY | END 2021-12-01 23:59 | disposition home or self-care (01) | LOC: SPT 06:00 | PROVIDERS: PCP Clinical Nurse Specialist Adult Health; Referring Provider Clinical Nurse Specialist Adult Health; Visit Provider Clinical Nurse Specialist Adult Health | DX: R53.1 Weakness (principal) | CPT/HCPCS: 97110; 97161 ==

== ENCOUNTER 2021-12-02 06:00 | Outpatient (RCR) | payer MEDICARE, SELFPAY ==
[2021-12-02 18:20] LABS: LAB Peripheral Smear Sent for Review
[2021-12-02 21:01] LABS: Hepatitis A Antibody IgM Non-Reactive (Nonreactive); Hepatitis B Core AB, Total Non-Reactive (Nonreactive); Hepatitis B Surface AB 3.5 (11.5-1000); Hepatitis B Surface Antigen Non-Reactive (Nonreactive); Hepatitis C Virus Antibody Reactive (Nonreactive)
[2021-12-04 21:43] LABS: HEP C RNA Viral Load Quant <1.18 NOT DETECTED Log IU/mL (NOT DETECTED); HEP C RNA Viral Load Quant <15 NOT DETECTED IU/mL (NOT DETECTED)
== END 2022-01-01 23:59 | disposition home or self-care (01) ==
LOC: SPT 06:00
PROVIDERS: Internal Medicine Hematology & Oncology; PCP Clinical Nurse Specialist Adult Health; Referring Provider Clinical Nurse Specialist Adult Health; Visit Provider Clinical Nurse Specialist Adult Health
DX: R53.1 Weakness (principal)
CPT/HCPCS: 80500; 86705; 86706; 86709; 86803; 87340; 87522; 97110

== ENCOUNTER 2021-12-02 13:35 | Outpatient (CLI) | payer MEDICARE, SELFPAY ==
[2021-12-02 14:36] LABS: Reticulocyte % 2.3 % (0.5-2.0)
[2021-12-02 14:38] LABS: Basophils % 0.7 %; Eosinophils # 0.2 10^3/uL (0.0-0.8); Eosinophils % 3.9 %; Hematocrit 34.5 % (42.0-52.0); Hemoglobin 12.6 g/dL (11.7-16.6); Lymphocytes # 1.5 10^3/uL (0.8-4.8); Lymphocytes % 26.1 %; Mean Corpuscular HGB Conc 36.5 g/dL (30.0-36.0); Mean Corpuscular Hemoglobin 38.3 pg (28.0-34.0); Mean Corpuscular Volume 104.9 fl (80-94); Mean Platelet Volume 11.5 fL (7.4-10.4); Monocytes # 0.3 10^3/uL (0.2-0.9); Monocytes % 4.8 %; Neutrophils # 3.62 10^3/uL (1.8-7.7); Neutrophils % 64.3 %; Nucleated Red Blood Cells % 0 %; Platelet Count 61 10^3/cmm (130-400); Red Blood Count 3.29 10^6/uL (4.1-5.3); Red Cell Distribution Width 18.2 % (12.1-15.1); White Blood Count 5.6 10^3/uL (4.0-10.0)
[2021-12-02 15:15] LABS: Alanine Aminotransferase 21 U/L (0-41); Albumin Level 2.6 g/dL (3.5-5.2); Alkaline Phosphatase 141 IU/L (40-130); Aspartate Amino Transferase 43 U/L (0-40); Blood Urea Nitrogen 11 mg/dL (8-23); Calcium 8.9 mg/dL (8.5-10.5); Carbon Dioxide 23 mmol/L (22-29); Chloride 104 mmol/L (98-107); Ferritin 996 ng/mL (30-400); Globulin 5.2 g/dL (1.3-4.6); Glomerular Filtration Rate 84.7 mL/min (90-130); Glucose 174 mg/dL (65-115); Iron 169 ug/dL (59-158); Osmolality Calculated 290 mOsm/kg (285-295); Sodium 138 mmol/L (136-145); Total Bilirubin 4.3 mg/dL (0.15-1.2); Total Protein 7.8 g/dL (6.6-8.7)
[2021-12-02 15:35] LABS: Percent Saturation 91.3 % (20-50); Total Iron Binding Capacity 185 mcg/dl; Unsaturated Iron Binding < 17 ug/dL (112-347); Vitamin B12 > 2000 pg/mL (232-1245)
--- NOTE | 2021-12-03 17:16 | ONC FU_ITS ---
Dr. Blanchard follow up note Patient: Simeon Graham Unit #: [id number]: 1955 Dicatated By: Imani Blanchard M.D.Date of Visit:Dec 02, 2021 Onc Med Follow-up/Prog Note History of Present Illness: Mr. Simeon Graham, is a 65-year-old gentleman with a history of hepatitis C, as per , patient was treated for hepatitis C by Dr. Hutson. As per patient and his patient has underlying liver problem and also longstanding history of heavy alcohol abuse and quit alcohol in May 2021. 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 Denies any nosebleed or gum bleed denies any hemoptysis or hematemesis denies any melena or hematochezia but dark-colored urine and jaundice. Denies any night sweats denies any weight loss, denies any recurrent fever, denies any peripheral lymphadenopathy but abdominal fullness, as per patient he has abdominal wall hernia. Also complaining of lower extremity edema which is a chronic problem. Medications: Lasix 1 Tablet (of 20 mg) Oral, Magnesium 1 Tablet (of 250 mg) Oral daily, Metoprolol Tartrate 0.5 (25 mg) Tablet Oral b.i.d., Multi Vitamin Daily 1 Tablet Oral daily, Potassium Tablet Oral daily, Spironolactone 0.5 Tablet (of 25 mg) Oral daily, traZODone HCl 2 Tablet (of 50 mg) Oral at bedtime PRN Allergies: Codeine Sulfate and traMADol HCl. Review of Systems: Review of Systems is not available for this patient. Vital Signs: Performed on Dec 02, 2021 16:08 Height - 68 in Weight - 218.2 lbs (HIGH) BSA - 2.12 sq.m BMI - 33.18 (HIGH) Temperature - 98.4 F Pulse - 99 /min Respiration - 18 /min BP - 152/84 mm(hg) (HIGH) O2 Sat - 99 % Pain - 0 Fatigue - 9 Performance Status: 2 - Ambulatory/capable of all self-care, unable to perform any work activities. Up and about more than 50% of waking hours. (ECOG) Physical Examination: ENMT - No mouth sores, poor oral hygiene, no thrush, jaundice present, Respiratory - Poor air entry otherwise clear, Cardiovascular - Regular rate and rhythm of heart, Abdomen - Soft, bowel sounds present, Extremities - 2+ edema bilaterally. Lab/Imaging: Most recent lab results are not available for this patient. Impression: Thrombocytopenia etiology could be multifactorial including splenic sequestration, underlying ITP especially with a history of hepatitis C, hepatitis C reactivation, platelet clumping, myelodysplasia, medications, Macrocytosis, could be nutritional History of hepatitis C, as per family initially diagnosed in late but ignored and eventually treated by Dr. Hutson in 2020. History of heavy alcohol abuse, quit in June 2021 Chronic lower extremity edema, abdominal hernia Jaundice, hepatic ailment, questionable cirrhosis Plan: Discussed with patient regarding his labs white blood count 5.6 hemoglobin 12.6 hematocrit 34.5 platelets 61,000 MCV 104.9 CMP within normal limits except bilirubin 4.3 AST 43 alk phos 141 albumin 2.6, iron studies shows iron saturation 91.3% ferritin 996, iron 169, TIBC 185, B12 more than 2000, reticulocyte count 2.3. Clinically, patient is doing reasonably well with no signs symptom suggestive of acute or gross bleeding his follow-up CBC shows isolated moderate thrombocytopenia etiology could be multifactorial including but not limited to splenic sequestration, ITP, recurrence of hepatitis C, underlying myelodysplasia, platelets clumping, medication. At this point, follow-up CBC done today shows improvement in his platelet count from 36,000 on November 03, 2020 and now 61,000 with normal hemoglobin and white blood cells, we will review his peripheral blood smear to rule out platelet clumping or other cellular abnormality. Also order hepatitis profile, and abdominal sonogram with special attention to liver and spleen. We will refer him to hepatology in [employer]. And then patient return to clinic in 2 weeks with CBC CMP, patient was advised , in case there is evidence of gross bleeding, he need to call us or go to hospital for evaluation. Signed By: Imani Blanchard M.D. <<Signature on File>>
== END 2021-12-02 13:36 | disposition home or self-care (01) ==
LOC: ONCMED 13:40
PROVIDERS: PCP Clinical Nurse Specialist Adult Health; Visit Provider Internal Medicine Hematology & Oncology
DX: B19.20 Unspecified viral hepatitis C without hepatic coma (principal); D75.89 Other specified diseases of blood and blood-forming organs; D69.6 Thrombocytopenia, unspecified; R60.0 Localized edema; Z79.899 Other long term (current) drug therapy
CPT/HCPCS: 36415; 80053; 82607; 82728; 82746; 83540; 83550; 85025; 85045; 99204

== ENCOUNTER 2021-12-09 16:03 | Inpatient (IN) | payer MEDICARE, SELFPAY ==
[2021-12-09 16:20] VITALS: BP 131/70; PULSE 71; RESP 17; TEMP 36.8; O2SAT 96; BMI 31.9
--- NOTE | 2021-12-09 16:36 | CTR_ITS ---
PROCEDURE INFORMATION: Exam: CT Head Without Contrast Exam date and time: 12/09/2021 4:36 PM Age: 65 years old Clinical indication: Injury or trauma; Fall; Blunt trauma (contusions or hematomas) TECHNIQUE: Imaging protocol: Computed tomography of the head without contrast. Radiation optimization: All CT scans at this facility use at least one of these dose optimization techniques: automated exposure control; mA and/or kV adjustment per patient size (includes targeted exams where dose is matched to clinical indication); or iterative reconstruction. COMPARISON: No relevant prior studies available. RADIATION DOSE METRICS: Total DLP (mGy-cm): 1399.91 FINDINGS: Brain: Moderate cortical volume loss. Mild hypodensities in supratentorial periventricular and subcortical white matter, consistent with microangiopathy. No intracranial hemorrhage. Physiologic calcifications in the basal ganglia. Cerebral ventricles: No ventriculomegaly. Paranasal sinuses: Mucosal thickening in the paranasal sinuses. No air-fluid levels. Mastoid air cells: Visualized mastoid air cells are well aerated. Vasculature: No hyperdense artery. Bones/joints: Unremarkable. No acute fracture. Soft tissues: Left periorbital and infraorbital soft tissue contusion/hematoma. Sebaceous cyst in the posterior parietal scalp. Prior cataract surgery. CT/CT head wo con* [id number] IMPRESSION: 1. No fracture or intracranial hemorrhage identified. 2. Left periorbital and infraorbital soft tissue contusion/hematoma.
--- NOTE | 2021-12-09 16:46 | XRR_ITS ---
PROCEDURE INFORMATION: Exam: XR Chest Exam date and time: 12/09/2021 4:46 PM Age: 65 years old Clinical indication: Other: AMS TECHNIQUE: Imaging protocol: XR of the chest. Views: 1 view. COMPARISON: CR XR chest 2V* [id number] 09/16/2021 2:04 PM FINDINGS: Lungs: Hazy opacity in the left hemithorax. The lateral aspect of the left lung base is excluded from the image. The right lung is clear. Pleural spaces: Unremarkable. No pleural effusion. No pneumothorax. Heart/Mediastinum: Unremarkable. No cardiomegaly. Bones/joints: Unremarkable. XR/XR chest 1V portable [id number] IMPRESSION: 1. Hazy opacity in the left lung could represent a pulmonary infiltrate due to pneumonia or aspiration, and/or a pleural effusion.
--- NOTE | 2021-12-09 16:46 | W.ED.FALL ---
HPI - Fall General: Chief Complaint: Fall Stated Complaint: Dr sent for Low Plattlet count and had a fall Time Seen by Provider: 12/09/21 16:32 PFSH ED PFSH: Medical History Arm mass Hypertension Family History Sister Cancer Social History Smoking and tobacco status: never smoked Alcohol intake: current Alcohol intake frequency: few times a month Alcohol type: hard liquor service: No History of recent travel: No Current gender identity: Male Course Vital Signs: Vital signs: Vital Signs Temperature 98.2 F 12/09/21 16:20 Pulse Rate 71 12/09/21 16:20 Respiratory Rate 17 12/09/21 16:20 Blood Pressure 131/70 12/09/21 16:20 Pulse Oximetry 96 12/09/21 16:20 Discharge Plan Discharge Condition: Stable Prescriptions: No Action hydrocodone-acetaminophen 5-325 mg tablet 1 tab PO Q4H PRN (Reason: pain) 7 Days Qty: 20 0RF metoprolol tartrate 25 mg Tablet 25 mg PO DAILY 0RF hydrocodone-acetaminophen 5-325 mg tablet 1 tab PO Q6H PRN (Reason: pain) Qty: 14 0RF Referrals: Moshe Bender [Primary Care Provider] - Coding Level of Care Code ED Director Client for Dylan Beltran
--- NOTE | 2021-12-09 16:47 | ECG_ITS ---
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 Measurements Intervals [place] Rate: 76 P: 48 NH: 124 QRS: 63 QRSD: 85 T: 55 QT: 342 QTc: 386 Interpretive Statements SINUS RHYTHM LOW QRS VOLTAGE IN PRECORDIAL LEADS [QRS DEFLECTION < 1.0 mV IN CHEST LEADS] NONSPECIFIC ST & T-WAVE ABNORMALITY Compared to ECG 04/04/2020 17:07:21 Low QRS voltage now present T-wave abnormality now present Sinus tachycardia no longer present Electronically Signed On 12-09-2021 17:33:35 TELESALES ADVISOR by Michele Saez M.D. [id number]
--- NOTE | 2021-12-09 17:17 | ED_ITS ---
HPI - General Adult General: Chief complaint: Fall Stated complaint: Dr sent for [place] count and had a fall Time Seen by Provider: 12/09/21 16:32 History of Present Illness: Patient is a 65-year-old male with a history of thrombocytopenia currently followed by Dr. Blanchard who presents the emergency room for an acute onset of altered mental status since yesterday night. At baseline, patient's that he is able to answer questions follow commands. However patient felt somewhat tired yesterday night. This morning, patient's found patient down on the ground. Patient is reported to have bilateral eye swelling. does not know whether patient hit his head. Patient is not on any anticoagulation. My have noticed the right elbow skin tear that is new since the day before. Patient is AAO x2, occasionally following commands. History is limited by cognitive status at this time. Onset: 1 day ago Duration:1 day Location:home Severity:moderate Associated symptoms: Reports rash (+R elbow skin tear) Review of Systems General: Reports: ROS unobtainable due to mental status Skin/Breast: Reports: rash (+R elbow skin tear) PFSH ED PFSH: Medical History (Updated 12/10/21 @ 00:08 by Barbara Nicolas MD) Arm mass Cirrhosis Hepatitis C Hypertension Portal hypertension Varices, esophageal Family History Sister Cancer Social History Smoking and tobacco status: never smoked Alcohol intake: current Alcohol intake frequency: few times a month Alcohol type: hard liquor service: No History of recent travel: No Current gender identity: Male Physical Exam Const: COMMON NORMALS: alert HENMT: COMMON NORMALS: atraumatic HEAD & SCALP: atraumatic MOUTH: moist mucous membranes not abnormal Eye: COMMON NORMALS: EOMs intact bilaterally and conjunctivae normal CO NJUNCTIVA: Yes conjunctivae normal OTHER: +b/l periorbital edema +facial erythema Neck/C-Spine: COMMON NORMALS: full ROM and supple Resp: COMMON NORMALS: normal respiratory effort and clear to auscultation bilaterally AUSCULTATION: clear to auscultation bilaterally Cardio: COMMON NORMALS: regular rate RATE: regular rate GI: COMMON NORMALS: Soft to palpation and non-tender PALPATION: Yes Soft to palpation Extremity: COMMON NORMALS: full ROM OTHER: + No focal tenderness palpation over the right elbow, range of motion of right elbow intact, 2+ radial pulses b/l Neuro: SENSORIUM/ORIENTATION: Yes alert MOTOR EXAM: No Abnormal motor strength present OTHER: GCS 14, AAO x1 (self), following commands, moving all extremities, exam limited by cognitive status. Psych: OTHER: + Unable to fully assess given altered mental status Skin: NARRATIVE SKIN EXAM: + Multiple facial erythema, +b/l periorbital swelling/edema, +right elbow skin tear Course Vital Signs: Vital signs: Vital Signs Temperature 98.1 F 12/11/21 08:21 Pulse Rate 84 12/11/21 08:21 Respiratory Rate 16 12/11/21 08:21 Blood Pressure 131/68 12/11/21 08:21 Pulse Oximetry 96 12/11/21 08:21 MDM - General Adult Medical Decision Making 65-year-old male w/ hx of thromcytopenia presented to the emergency room for concerns of altered mental status and fall. It is unclear what time this happened. AO x1, rest of history within limit normal limit. Findings include ski n tear and periorbital edema Status post Tdap. Patient will be worked up for altered mental status. Will image elbow to evaluate for any signs of injuries X-ray of the elbow not show any signs of acute fracture. Skin tear will not be repaired superficial it is. Patient was found to have a troponin of 160 with a delta of greater than 30. S/p rectal ASA and lovenox. EKG is nonischemic. Patient is altered currently. Ammonia level of 148. Patient will be mated to hospital for management of hepatic encephalopathy, rising troponin, NSTEMI, and altered mental status. Disposition: admission Lab Data : 12/11/21 03:52 12/11/21 03:[address] 12/09/21 16:36 IMPRESSION: 1. No fracture or intracranial hemorrhage identified. 2. Left periorbital and infraorbital soft tissue contusion/hematoma. Chest X-Ray 12/09/21 16:46 IMPRESSION: 1. Hazy opacity in the left lung could represent a pulmonary infiltrate due to pneumonia or aspiration, and/or a pleural effusion. Elbow X-Ray 12/09/21 20:06 IMPRESSION: No acute findings. Chest/Abdomen/Pelvis CT 12/09/21 21:47 IMPRESSION: 1. Large left pleural effusion with left lung atelectasis and partial collapse of the left lower lobe. 2. Body wall edema, asymmetrically prominent in the left lateral chest wall. IMPRESSION: 1. Severe liver cirrhosis. 2. Portal venous hypertension with varices. 3. Large amount of ascites. 4. Cholelithiasis. 5. Diverticulosis of the distal colon. 6. Body wall edema. COMMENTS: Consistent with the [employer]'s Incidental Findings Committee white paper (J Am Sharri Radiol 2018): Any incidental renal lesion less than 1 cm or classified as too small to characterize, or any incidental cystic renal lesion characterized as simple-appearing, is likely benign. No follow-up imaging is recommended for these lesions per consensus recommendations based on imaging criteria. Paracentesis Ultrasound 12/10/21 02:41 IMPRESSION: Uncomplicated ultrasound-guided paracentesis. Removal of 5000 cc of ascites Laboratory Results WBC 14.7 10^3/uL (4.0-10.0) H 12/09/21 17:19 RBC 3.54 10^6/uL (4.1-5.3) L 12/09/21 17:19 Hgb 12.3 g/dL (11.7-16.6) 12/09/21 17:19 Hct 37.4 % (42.0-52.0) L 12/09/21 17:19 MCV 105.6 fl (80-94) H 12/09/21 17:19 MCH 34.7 pg (28.0-34.0) H 12/09/21 17:19 MCHC 32.9 g/dL (30.0-36.0) 12/09/21 17:19 RDW 18.8 % (12.1-15.1) H 12/09/21 17:19 Plt Count 88 10^3/cmm (130-400) L 12/09/21 17:19 MPV 11.2 fL (7.4-10.4) H 12/09/21 17:19 Neut % (Auto) 64.6 % 12/09/21 17:19 Lymph % (Auto) 25.4 % 12/09/21 17:19 [place] % (Auto) 8.4 % 12/09/21 17:19 Eos % (Auto) 0.8 % 12/09/21 17:19 Baso % (Auto) 0.3 % 12/09/21 17:19 Neut # (Auto) 9.49 10^3/uL (1.8-7.7) H 12/09/21 17:19 Lymph # (Auto) 3.7 10^3/uL (0.8-4.8) 12/09/21 17:19 [place] # (Auto) 1.2 10^3/uL (0.2-0.9) H 12/09/21 17:19 Eos # (Auto) 0.1 10^3/uL (0.0-0.8) 12/09/21 17:19 Baso # (Auto) 0.0 10^3/uL (0.0-0.1) 12/09/21 17:19 Nucleated RBC % (auto) 0 % 12/09/21 17:19 Nucleated RBCs # 0.0 /100WBC 12/09/21 17:19 PT 22.20 SECONDS (12.1-14.9) H 12/09/21 18:28 INR 1.90 (0.8-1.2) H 12/09/21 18:28 APTT 39.7 SECONDS (23.9-36.7) H 12/09/21 18:28 Specimen Type Arterial 12/09/21 19:40 Sample Site Radial, left 12/09/21 19:40 ABG pH 7.49 (7.35-7.45) H 12/09/21 19:40 ABG pCO2 29.4 mmHg (35-45) L 12/09/21 19:40 ABG pO2 64.5 mmHg (80.0-100.0) L 12/09/21 19:40 ABG HCO3 22.6 mmol/L (22-26) 12/09/21 19:40 ABG Base Excess 0.0 mmol/L (-2.0-2.0) 12/09/21 19:40 Jace Test Pos 12/09/21 19:40 Hematocrit 34.9 % (42-52) L 12/09/21 19:40 O2 Delivery Device None 12/09/21 19:40 FiO2 21.0 % 12/09/21 19:40 Ship'S Surveyor ID [id number] 12/09/21 19:40 Sodium 136 mmol/L (136-145) 12/09/21 18:28 Potassium 3.9 mmol/L (3.5-5.1) 12/09/21 18:28 Chloride 103 mmol/L (98-107) 12/09/21 18:28 Carbon Dioxide 18 mmol/L (22-29) L 12/09/21 18:28 Anion Gap 18.9 (5-19) 12/09/21 18:28 BUN 20 mg/dL (8-23) 12/09/21 18:28 Creatinine 1.0 mg/dL (0.7-1.2) 12/09/21 18:28 GFR Calculation 75.0 mL/min (90-130) L 12/09/21 18:28 Glucose 125 mg/dL (65-115) H 12/09/21 18:28 Calculated Osmolality 286 mOsm/kg (285-295) 12/09/21 18:28 Calcium 9.4 mg/dL (8.5-10.5) 12/09/21 18:28 Total Bilirubin 3.5 mg/dL (0.15-1.2) H 12/09/21 18:28 AST 70 U/L (0-40) H 12/09/21 18:28 ALT 21 U/L (0-41) 12/09/21 18:28 Alkaline Phosphatase 120 IU/L (40-130) 12/09/21 18:28 Ammonia 95 umol/L (16-60) H 12/09/21 20:12 Troponin T Baseline 176 ng/L (0-15) H* 12/09/21 18:28 Troponin T 120 Minute 213.9 ng/L (0-15) H 12/09/21 20:03 Delta Troponin T 37.9 ABS# (0-10) H* 12/09/21 20:03 Total Protein 7.6 g/dL (6.6-8.7) 12/09/21 18:28 Albumin 2.6 g/dL (3.5-5.2) L 12/09/21 18:28 Globulin 5.0 g/dL (1.3-4.6) H 12/09/21 18:28 Lipase 47 U/L (13-60) 12/09/21 18:28 TSH 1.98 uIU/mL (0.27-4.20) 12/09/21 18:28 Free T4 1.65 ng/dL (0.82-1.77) 12/09/21 18:28 Urine Color Dark yellow (Yellow) 12/09/21 17:38 Urine Appearance Clear (CLEAR) 12/09/21 17:38 Urine pH 5 (5-7) 12/09/21 17:38 Ur Specific [place] 1.020 (1.005-1.030) 12/09/21 17:38 Urine Protein 1+ (Negative) H 12/09/21 17:38 Urine Glucose (UA) Norm (Normal) 12/09/21 17:38 Urine Ketones Negative (Negative) 12/09/21 17:38 Urine Blood 3+ (Negative) H 12/09/21 17:38 Urine Nitrate Negative (Negative) 12/09/21 17:38 Urine Bilirubin 1+ (Negative) H 12/09/21 17:38 Urine Urobilinogen 4 mg/dL (Negative) H 12/09/21 17:38 Ur Leukocyte Esterase Negative (Negative) 12/09/21 17:38 Urine RBC >100 /hpf (0-2) H 12/09/21 17:38 Urine WBC 5-10 /hpf (0-5) H 12/09/21 17:38 Ur Squamous Epith Cells 0-4 /hpf (0-5) H 12/09/21 17:38 Amorphous Sediment Not Reportable 12/09/21 17:38 Urine Bacteria Trace /hpf (NONE) 12/09/21 17:38 Hyaline Casts 0-4 /lpf H 12/09/21 17:38 Urine Mucus Trace /hpf 12/09/21 17:38 Salicylates < 0.3 mg/dL (3-10) L 12/09/21 18:28 Urine Opiates Screen Negative ng/mL (Negative) 12/09/21 17:38 Acetaminophen < 5.0 ug/mL (10-30) L 12/09/21 18:28 Ur Barbiturates Screen Negative ng/mL (Negative) 12/09/21 17:38 Ur Phencyclidine Scrn Negative ng/mL (Negative) 12/09/21 17:38 Ur Amphetamines Screen Negative ng/mL (Negative) 12/09/21 17:38 U Benzodiazepines Scrn Negative ng/mL (Negative) 12/09/21 17:38 Urine Cocaine Screen Negative ng/mL (Negative) 12/09/21 17:38 U Marijuana (THC) Screen Negative ng/mL (Negative) 12/09/21 17:38 Ethyl Alcohol < 10 mg/dL (0-10) 12/09/21 20:03 Blood Type O Negative 12/09/21 17:19 Rho(D) Type Negative 12/09/21 17:19 Antibody Screen Negative 12/09/21 17:19 Imaging Data Other Imaging: Radiologist's impression: [facility] [address] [place] [address] XRay Report Signed Patient: Simeon Roland Unit #: [id number] : 1955 Age/Sex: 65 / M ADM Date: 12/09/21 Loc: ER Room/Bed: Attending Dr: Ordering Provider/Ordering MD: Devin Delacruz MD Date of Service: 12/09/21 Procedure(s): XR chest 1V portable [id number] Accession Number(s): [id number] Report Number: [id number] PROCEDURE INFORMATION: Exam: XR Chest Exam date and time: 12/09/2021 4:46 PM Age: 65 years old Clinical indication: Other: AMS TECHNIQUE: Imaging protocol: XR of the chest. Views: 1 view. COMPARISON: CR XR chest 2V* [id number] 09/16/2021 2:04 PM FINDINGS: Lungs: Hazy opacity in the left hemithorax. The lateral aspect of the left lung base is excluded from the image. The right lung is clear. Pleural spaces: Unremarkable. No pleural effusion. No pneumothorax. Heart/Mediastinum: Unremarkable. No cardiomegaly. Bones/joints: Unremarkable. XR/XR chest 1V portable [id number] IMPRESSION: 1. Hazy opacity in the left lung could represent a pulmonary infiltrate due to pneumonia or aspiration, and/or a pleural effusion. ? Dictated By: Vini Teran Signed By: Vini Teran Signed Date/Time: 12/09/21 1724 DD/ [id number] Scan Report Signed Patient: Simeon Roland Unit #: [id number] : 1955 Age/Sex: 65 / M ADM Date: 12/09/21 Loc: ER Room/Bed: Attending Dr: Ordering Provider/Ordering MD: Devin Delacruz MD Date of Service: 12/09/21 Procedure(s): CT head wo con* [id number] Accession Number(s): [id number] Report Number: [id number] PROCEDURE INFORMATION: Exam: CT Head Without Contrast Exam date and time: 12/09/2021 4:36 PM Age: 65 years old Clinical indication: Injury or trauma; Fall; Blunt trauma (contusions or hematomas) TECHNIQUE: Imaging protocol: Computed tomography of the head without contrast. Radiation optimization: All CT scans at this facility use at least one of these dose optimization techniques: automated exposure control; mA and/or kV adjustment per patient size (includes targeted exams where dose is matched to clinical indication); or iterative reconstruction. COMPARISON: No relevant prior studies available. RADIATION DOSE METRICS: Total DLP (mGy-cm): 1399.91 FINDINGS: Brain: Moderate cortical volume loss. Mild hypodensities in supratentorial periventricular and subcortical white matter, consistent with microangiopathy. No intracranial hemorrhage. Physiologic calcifications in the basal ganglia. Cerebral ventricles: No ventriculomegaly. Paranasal sinuses: Mucosal thickening in the paranasal sinuses. No air-fluid levels. Mastoid air cells: Visualized mastoid air cells are well aerated. Vasculature: No hyperdense artery. Bones/joints: Unremarkable. No acute fracture. Soft tissues: Left periorbital and infraorbital soft tissue contusion/hematoma. Sebaceous cyst in the posterior parietal scalp.? Prior cataract surgery. CT/CT head wo con* [id number] IMPRESSION: 1. No fracture or intracranial hemorrhage identified. 2. Left periorbital and infraorbital soft tissue contusion/hematoma. ? Dictated By: Vini Teran Signed By: Vini Teran Signed Date/Time: 12/09/21 1721 DD/ [address] [address] XRay Report Signed Patient: Simeon Roland Unit #: [id number] : 1955 Age/Sex: 65 / M ADM Date: 12/09/21 Loc: ER Room/Bed: Attending Dr: Ordering Provider/Ordering MD: Devin Delacruz MD Date of Service: 12/09/21 Procedure(s): XR elbow RT 2V [id number] Accession Number(s): [id number] Report Number: [id number] PROCEDURE INFORMATION: Exam: XR Right Elbow Exam date and time: 12/09/2021 8:06 PM Age: 65 years old Clinical indication: Pain; Elbow; Right; Additional info: Eval for elbow injuries TECHNIQUE: Imaging protocol: XR Right elbow. Views: 1 or 2 views. COMPARISON: No relevant prior studies available. FINDINGS: Bones/joints: Normal. Soft tissues: Normal. XR/XR elbow RT 2V [id number] IMPRESSION: No acute findings. ? Dictated By: Vini Teran Signed By: Vini Teran Signed Date/Time: 12/09/212038 DD/ [address] [address] XRay Report Signed Patient: Simeon Roland Unit #: [id number] : 1955 Age/Sex: 65 / M ADM Date: 12/09/21 Loc: ER Room/Bed: Attending Dr: Ordering Provider/Ordering MD: Devin Delacruz MD Date of Service: 12/09/21 Procedure(s): XR chest 1V portable [id number] Accession Number(s): [id number] Report Number: [id number] PROCEDURE INFORMATION: Exam: XR Chest Exam date and time: 12/09/2021 4:46 PM Age: 65 years old Clinical indication: Other: AMS TECHNIQUE: Imaging protocol: XR of the chest. Views: 1 view. COMPARISON: CR XR chest 2V* [id number] 09/16/2021 2:04 PM FINDINGS: Lungs: Hazy opacity in the left hemithorax. The lateral aspect of the left lung base is excluded from the image. The right lung is clear. Pleural spaces: Unremarkable. No pleural effusion. No pneumothorax. Heart/Mediastinum: Unremarkable. No cardiomegaly. Bones/joints: Unremarkable. XR/XR chest 1V portable [id number] IMPRESSION: 1. Hazy opacity in the left lung could represent a pulmonary infiltrate due to pneumonia or aspiration, and/or a pleural effusion. ? Dictated By: Vini Teran Signed By: Vini Teran Signed Date/Time: 12/09/21 1724 DD/ 1646 Discharge Plan Discharge Patient Disposition: Admitted As Inpatient Admit Provider: Barbara Nicolas Clinical Impression: Elevated troponin, Altered mental status, Pneumonia, Acute hepatic e ncephalopathy Condition: Stable Coding Level of Care Code ED Regional Recruiter for Chg Fwd Exam Comprehensive
[2021-12-09] MEDS: LORazepam 2 mg/mL INJ 1 mL IVP (17:40)
[2021-12-09 18:26] VITALS: BP 120/60; PULSE 76; RESP 16; O2SAT 92
[2021-12-09 18:35] LABS: Basophils % 0.3 %; Eosinophils # 0.1 10^3/uL (0.0-0.8); Eosinophils % 0.8 %; Hematocrit 37.4 % (42.0-52.0); Hemoglobin 12.3 g/dL (11.7-16.6); Lymphocytes # 3.7 10^3/uL (0.8-4.8); Lymphocytes % 25.4 %; Mean Corpuscular HGB Conc 32.9 g/dL (30.0-36.0); Mean Corpuscular Hemoglobin 34.7 pg (28.0-34.0); Mean Corpuscular Volume 105.6 fl (80-94); Mean Platelet Volume 11.2 fL (7.4-10.4); Monocytes # 1.2 10^3/uL (0.2-0.9); Monocytes % 8.4 %; Neutrophils # 9.49 10^3/uL (1.8-7.7); Neutrophils % 64.6 %; Nucleated Red Blood Cells % 0 %; Platelet Count 88 10^3/cmm (130-400); Red Blood Count 3.54 10^6/uL (4.1-5.3); Red Cell Distribution Width 18.8 % (12.1-15.1); White Blood Count 14.7 10^3/uL (4.0-10.0)
--- NOTE | 2021-12-09 18:47 | ECG_ITS ---
[facility] Test Date: 2021-12-09 Pat Name: Simeon Roland Department: Room: Gender: Male Assistant Director Of Security: : 1955 Requested By: Devin Delacruz Order Number: [id number] Reading MD: Michele Saez M.D. Measurements Intervals [place] Rate: 85 P: 62 CA: 139 QRS: 71 QRSD: 84 T: 34 QT: 336 QTc: 400 Interpretive Statements SINUS RHYTHM LOW QRS VOLTAGE IN PRECORDIAL LEADS [QRS DEFLECTION < 1.0 mV IN CHEST LEADS] NONSPECIFIC ST & T-WAVE ABNORMALITY Compared to ECG 12/09/2021 17:30:37 No significant changes Electronically Signed On 12-09-2021 20:22:11 PATENT ATTORNEY by Michele Saez M.D. [email or web address]
[2021-12-09 19:00] LABS: Partial Thromboplastin Time 39.7 SECONDS (23.9-36.7)
[2021-12-09 19:10] LABS: Slide Review Slide Review Perform
[2021-12-09 19:10] LABS: Alanine Aminotransferase 21 U/L (0-41); Albumin Level 2.6 g/dL (3.5-5.2); Alkaline Phosphatase 120 IU/L (40-130); Ammonia 148 umol/L (16-60); Anion Gap 18.9 (5-19); Aspartate Amino Transferase 70 U/L (0-40); Blood Urea Nitrogen 20 mg/dL (8-23); Calcium 9.4 mg/dL (8.5-10.5); Carbon Dioxide 18 mmol/L (22-29); Chloride 103 mmol/L (98-107); Creatinine Clr Calc Pharmacy 82.4392; Glucose 125 mg/dL (65-115); Lipase 47 U/L (13-60); Osmolality Calculated 286 mOsm/kg (285-295); Potassium 3.9 mmol/L (3.5-5.1); Sodium 136 mmol/L (136-145); Total Bilirubin 3.5 mg/dL (0.15-1.2); Total Protein 7.6 g/dL (6.6-8.7)
[2021-12-09 19:16] LABS: Acetaminophen < 5.0 ug/mL (10-30); Salicylate < 0.3 mg/dL (3-10)
[2021-12-09 19:17] LABS: Troponin(5th) Baseline 176 ng/L (0-15)
[2021-12-09] MEDS: cefTRIAXone 1,000 MG in sodium chloride 0.9% (plus) 50 ML 100 MG IV (19:35)
[2021-12-09] MEDS: azithromycin 500 MG in sodium chloride 0.9% 250 ML 250 MG IV (19:47)
[2021-12-09 19:51] LABS: ABG PCO2 29.4 mmHg (35-45); ABG PH Result 7.49 (7.35-7.45); Arterial Blood Gas Hematocrit 34.9 % (42-52); Blood Gas Allen Test Pos; Blood Gas Sample Type Arterial; HCO3 ABG 22.6 mmol/L (22-26); PO2 ABG 64.5 mmHg (80.0-100.0)
[2021-12-09 19:52] LABS: Blood Gas Sample Site Radial, left
--- NOTE | 2021-12-09 20:06 | XRR_ITS ---
PROCEDURE INFORMATION: Exam: XR Right Elbow Exam date and time: 12/09/2021 8:06 PM Age: 65 years old Clinical indication: Pain; Elbow; Right; Additional info: Eval for elbow injuries TECHNIQUE: Imaging protocol: XR Right elbow. Views: 1 or 2 views. COMPARISON: No relevant prior studies available. FINDINGS: Bones/joints: Normal. Soft tissues: Normal. XR/XR elbow RT 2V [id number] IMPRESSION: No acute findings.
[2021-12-09 20:26] LABS: Free T4 Free Thyroxine 1.65 ng/dL (0.82-1.77)
[2021-12-09] MEDS: tetanus-dipt-pertussis 0.5 mL SDV IM (20:27)
[2021-12-09 20:34] LABS: Troponin 5 2HR 213.9 ng/L (0-15)
[2021-12-09 20:35] LABS: Troponin 5 2HR Delta 37.9 ABS# (0-10)
[2021-12-09 20:41] LABS: Ammonia 95 umol/L (16-60)
[2021-12-09 21:07] LABS: Thyroid Stimulating Hormone 1.98 uIU/mL (0.27-4.20)
[2021-12-09] MEDS: enoxaparin 100 mg/mL Syringe 90 MG SUBCUT (21:33)
[2021-12-09 21:35] VITALS: BP 116/54; PULSE 78; RESP 24; O2SAT 95
--- NOTE | 2021-12-09 21:47 | CTR_ITS ---
PROCEDURE INFORMATION: Exam: CT Chest Without Contrast; Diagnostic Exam date and time: 12/09/2021 9:47 PM Age: 65 years old Clinical indication: Abnormal findings; Abnormal lab test; Abnormal diagnostic tests; Abnormal ekg; Patient HX: Elevated wbc, HX of hep c/cirrhosis/thrombocytopenia; Additional info: Evalute for pneumonia. , Liver cirrhosis TECHNIQUE: Imaging protocol: Diagnostic computed tomography of the chest without contrast. Radiation optimization: All CT scans at this facility use at least one of these dose optimization techniques: automated exposure control; mA and/or kV adjustment per patient size (includes targeted exams where dose is matched to clinical indication); or iterative reconstruction. COMPARISON: CT abdomen pelvis w con* [id number] 04/04/2020 6:10 PM RADIATION DOSE METRICS: Total DLP (mGy-cm): 2166.35 FINDINGS: Lungs: Passive atelectasis in the left upper lobe. Near complete collapse of the left lower lobe with a small aerated portion in the superior segment. Minimal atelectasis in the right lung, which is otherwise clear. Pleural spaces: Large left pleural effusion. Heart: No coronary artery calcifications. No cardiomegaly. No pericardial effusion. Aorta: Unremarkable. No aortic aneurysm. Lymph nodes: Unremarkable. No enlarged lymph nodes. Bones/joints: Unremarkable. No acute fracture. Soft tissues: Diffuse body wall edema, asymmetrically prominent in the left chest wall. PROCEDURE INFORMATION: Exam: CT Abdomen And Pelvis Without Contrast Exam date and time: 12/09/2021 9:47 PM Age: 65 years old Clinical indication: Abnormal findings; Abnormal lab test; Abnormal diagnostic tests; Abnormal ekg; Patient HX: Elevated wbc, HX of hep c/cirrhosis/thrombocytopenia; Additional info: Evalute for pneumonia. , Liver cirrhosis TECHNIQUE: Imaging protocol: Computed tomography of the abdomen and pelvis without contrast. Radiation optimization: All CT scans at this facility use at least one of these dose optimization techniques: automated exposure control; mA and/or kV adjustment per patient size (includes targeted exams where dose is matched to clinical indication); or iterative reconstruction. COMPARISON: CT abdomen pelvis w con* [id number] 04/04/2020 6:10 PM RADIATION DOSE METRICS: Total DLP (mGy-cm): 01574.35 FINDINGS: Liver: Cirrhotic liver. No focal lesion visualized. Gallbladder and bile ducts: Large calcified stone or collection of stones in the gallbladder. No visible wall thickening. The bile ducts are normal. Pancreas: Normal. No ductal dilation. Spleen: Normal. No splenomegaly. Adrenal glands: Normal. No mass. Kidneys and ureters: Fluid density right renal cyst, Hounsfield units less than 20. No follow-up imaging is recommended. The kidneys are otherwise unremarkable. No hydronephrosis or calculus. Stomach and bowel: Diverticulosis of the distal colon. No diverticulitis. The stomach and small bowel are unremarkable. No wall thickening or obstruction.. Small fat containing umbilical hernia. Appendix: The appendix is visualized and is normal. Intraperitoneal space: Large amount of ascites. No free air. Vasculature: Portal venous hypertension with recanalized umbilical vein and splenic hilar varices. Mild vascular calcifications. No aneurysm. Lymph nodes: Unremarkable. No enlarged lymph nodes. Urinary bladder: Pinon catheter in a decompressed urinary bladder. Reproductive: Unremarkable as visualized. Bones/joints: Degenerative changes of the spine. No fracture. Soft tissues: Diffuse body wall edema. Left inguinal hernia which contains fluid. CT/CT chest abd pel wo con IMPRESSION: 1. Large left pleural effusion with left lung atelectasis and partial collapse of the left lower lobe. 2. Body wall edema, asymmetrically prominent in the left lateral chest wall. IMPRESSION: 1. Severe liver cirrhosis. 2. Portal venous hypertension with varices. 3. Large amount of ascites. 4. Cholelithiasis. 5. Diverticulosis of the distal colon. 6. Body wall edema. COMMENTS: Consistent with the [place] [employer]'s Incidental Findings Committee white paper (J Am Sharri Radiol 2018): Any incidental renal lesion less than 1 cm or classified as too small to characterize, or any incidental cystic renal lesion characterized as simple-appearing, is likely benign. No follow-up imaging is recommended for these lesions per consensus recommendations based on imaging criteria.
[2021-12-09] MEDS: pantoprazole 40 mg SDV IVP (22:14)
[2021-12-09 22:31] LABS: Add Urine Microscopic? YES; Bilirubin Urine 1+ (Negative); Blood Urine 3+ (Negative); Glucose Urine UA Norm (Normal); Ketones Urine Negative (Negative); Leukocyte Esterase Urine Negative (Negative); Nitrate Urine Negative (Negative); Protein Urine 1+ (Negative); Urine Appearance Clear (CLEAR); Urine Color Dark Yellow (Yellow); Urobilinogen Urine 4 mg/dL (Negative); pH Urine 5 (5-7)
[2021-12-09 22:32] LABS: Alcohol Level < 10 mg/dL (0-10)
[2021-12-09 22:32] LABS: Add Urine Culture? Yes; Bacteria Urine TRACE /hpf; Hyaline Casts Urine 0-4 /lpf; Mucus Urine TRACE /hpf; RBC Urine >100 /hpf (0-2); Squamous Epithelial Cell Urine 0-4 /hpf (0-5)
[2021-12-09 22:33] LABS: Amphetamines Screen Urine Negative (Negative); Barbiturates Screen Urine Negative (Negative); Benzodiazepines Screen Urine Negative (Negative); Cocaine Screen Urine Negative (Negative); Opiate Screen Urine Negative (Negative); PCP Screen Urine Negative (Negative); THC Screen Urine Negative (Negative)
[2021-12-09 22:38] VITALS: BP 123/63; PULSE 63; RESP 16; O2SAT 96
[2021-12-09 22:54] VITALS: BP 123/63; PULSE 63; RESP 16; O2SAT 96
--- NOTE | 2021-12-09 23:40 | P.HP_ITS ---
Providers/Chief Complaint Admitting Physician: Barbara Nicolas MD Primary Care Provider: Moshe Bender Chief Complaint: Dr sent for [place] count and had a fall History of Present Illness Simeon Roland is a 65 year old male with known PMH Hep C cirrhosis, known portal HTN, treated HEP C 2019, last VL not detected, alcohol dependence until May 2021, presenting to the ER today with AMS. History is obtained by talking to his at bedside as patient is unable to participate in any history due to confusion. Patient has been experiencing increasing confusion and disorientation dating back to September 2021. Innitially episodes were with increased somnolence, confusion such as putting on trousrs on hands, putting on robes backwards etc and some memory gaps. Over this past weekend is Wednesday), he has continued to be become more disoriented. Yesterday night and again this morning, patient was noted to be unsteady on his feet and suffered a fall in the doorway. He was instructed by his PCP to present to the ER for further evaluation. Patient was recently seen by heme/onc for chronic thormbocytopenia and underwent w/up with differentials including chronic liver disease, ITP etc. Reent b12, folate levels were WNL. He was referred to see hepatology in [place]. Patient has additionally been developing increasing anasarca over the past few days, takes lasix 20mg once a week without any recent changes in his dose. Per , he was diagnosed with high ammonia levels back in 09/2021 as well however no laxatives are currently seen on his home medication list. He has a diffuse rash over his face which is related to diagnosis of Psoriasis, he has been using topical steroids for the same. Additionally noted are multiple bruises over B/L Arms and superficial skin tears B/L arms as well. w/up in the ER shows elevated ammonia level at 95, elevated T.bili, INR 1.9, elevated troponin baseline at 176, 2 hr delta at 35. he has received one dose of lovenox 1mg/kg for possible NSTEMI. No significant ST-T wave changes on EKG. Patient unable to tell me about chest pain however per has not had any compaints of chest pain, dyspnea, palpitations at home. No h/o fever. Review of Systems General: Reports: ROS unobtainable due to medical condition and ROS unobtainable due to mental status Medications/Allergies Home Medications Medication Instructions Recorded Confirmed Last Taken Type metoprolol tartrate 25 mg tablet 12.5 mg PO DAILY 02/17/21 12/09/21 12/07/21 History fluocinolone 0.025 % topical cream 1 applic TOPICAL DAILY 12/09/21 12/09/21 Unknown History furosemide 20 mg tablet (Lasix) 20 mg PO Q7D 12/09/21 12/09/21 12/07/21 History potassium chloride 10 mEq 10 meq PO DAILY 12/09/21 12/09/21 12/07/21 History capsule,extended release spironolactone 25 mg tablet 12.5 mg PO DAILY 12/09/21 12/09/21 12/07/21 History trazodone 50 mg tablet 50 mg PO BEDTIME PRN 12/09/21 12/09/21 Unknown History Allergies Allergy/AdvReac Type Severity Reaction Status Date / Time tramadol Allergy Intermediate itching Verified 12/09/21 16:26 codeine Allergy Unknown Unknown Verified 12/09/21 16:26 PFSH Acute PFSH: Medical History (Updated 12/10/21 @ 00:08 by Barbara Nicolas MD) Arm mass Cirrhosis Hepatitis C Hypertension Portal hypertension Varices, esophageal Family History Sister Cancer Social History Smoking and tobacco status: never smoked Alcohol intake: current Alcohol intake frequency: few times a month Alcohol type: hard liquor service: No History of recent travel: No Current gender identity: Male Vitals/I&O/Wt Last Vital Signs Temp 98.2 F 12/09/21 16:20 Pulse 63 12/09/21 22:54 Resp 16 12/09/21 22:54 BP 123/63 12/09/21 22:54 Pulse Ox 96 12/09/21 22:54 12/09/21 12/09/21 12/10/21 14:59 22:59 06:59 Intake Total 300 / 300 Balance 300 / 300 Weight last 48 hrs Weight 95.254 kg Physical Exam Narrative: GEN: Confused, disoriented, opens eyes to calling nme, however currently unable to state name, age, etc. CVS: S1S2 N RS: Reduced air entry left axillary and infrascapular areas Abd: Distended, Fluid thrill+ ?anterior abdominal wall hernia SUPERVISOR CHEMICAL: moves all extremities in bed spontaneously, however does not follow commands Urinary Catheter Management: Pinon: Cath Placed During This Visit: yes Urinary Catheter Date of Insertion: 12/09/21 Urinary Catheter Time of Insertion: 17:35 Data : 12/09/21 17:19 12/09/21 18:28 Micro: Microbiology 12/09/21 18:28 Blood Culture - Preliminary Blood SPECIMEN COLLECTED 12/09/21 17:15 Blood Culture - Preliminary Blood SPECIMEN COLLECTED Other data: Radiology Impressions Head CT 12/09/21 16:36 IMPRESSION: 1. No fracture or intracranial hemorrhage identified. 2. Left periorbital and infraorbital soft tissue contusion/hematoma. Chest X-Ray 12/09/21 16:46 IMPRESSION: 1. Hazy opacity in the left lung could represent a pulmonary infiltrate due to pneumonia or aspiration, and/or a pleural effusion. Elbow X-Ray 12/09/21 20:06 IMPRESSION: No acute findings. Chest/Abdomen/Pelvis CT 12/09/21 21:47 IMPRESSION: 1. Large left pleural effusion with left lung atelectasis and partial collapse of the left lower lobe. 2. Body wall edema, asymmetrically prominent in the left lateral chest wall. IMPRESSION: 1. Severe liver cirrhosis. 2. Portal venous hypertension with varices. 3. Large amount of ascites. 4. Cholelithiasis. 5. Diverticulosis of the distal colon. 6. Body wall edema. COMMENTS: Consistent with the [employer]'s Incidental Findings Committee white paper (J Am Sharri Radiol 2018): Any incidental renal lesion less than 1 cm or classified as too small to characterize, or any incidental cystic renal lesion characterized as simple-appearing, is likely benign. No follow-up imaging is recommended for these lesions per consensus recommendations based on imaging criteria. Laboratory Results WBC 14.7 10^3/uL (4.0-10.0) H 12/09/21 17:19 RBC 3.54 10^6/uL (4.1-5.3) L 12/09/21 17:19 Hgb 12.3 g/dL (11.7-16.6) 12/09/21 17:19 Hct 37.4 % (42.0-52.0) L 12/09/21 17:19 MCV 105.6 fl (80-94) H 12/09/21 17:19 MCH 34.7 pg (28.0-34.0) H 12/09/21 17:19 MCHC 32.9 g/dL (30.0-36.0) 12/09/21 17:19 RDW 18.8 % (12.1-15.1) H 12/09/21 17:19 Plt Count 88 10^3/cmm (130-400) L 12/09/21 17:19 MPV 11.2 fL (7.4-10.4) H 12/09/21 17:19 Neut % (Auto) 64.6 % 12/09/21 17:19 Lymph % (Auto) 25.4 % 12/09/21 17:19 Brooke % (Auto) 8.4 % 12/09/21 17:19 Eos % (Auto) 0.8 % 12/09/21 17:19 Baso % (Auto) 0.3 % 12/09/21 17:19 Neut # (Auto) 9.49 10^3/uL (1.8-7.7) H 12/09/21 17:19 Lymph # (Auto) 3.7 10^3/uL (0.8-4.8) 12/09/21 17:19 Brooke # (Auto) 1.2 10^3/uL (0.2-0.9) H 12/09/21 17:19 Eos # (Auto) 0.1 10^3/uL (0.0-0.8) 12/09/21 17:19 Baso # (Auto) 0.0 10^3/uL (0.0-0.1) 12/09/21 17:19 Nucleated RBC % (auto) 0 % 12/09/21 17:19 Nucleated RBCs # 0.0 /100WBC 12/09/21 17:19 PT 22.20 SECONDS (12.1-14.9) H 12/09/21 18:28 INR 1.90 (0.8-1.2) H 12/09/21 18:28 APTT 39.7 SECONDS (23.9-36.7) H 12/09/21 18:28 Specimen Type Arterial 12/09/21 19:40 Sample Site Radial, left 12/09/21 19:40 ABG pH 7.49 (7.35-7.45) H 12/09/21 19:40 ABG pCO2 29.4 mmHg (35-45) L 12/09/21 19:40 ABG pO2 64.5 mmHg (80.0-100.0) L 12/09/21 19:40 ABG HCO3 22.6 mmol/L (22-26) 12/09/21 19:40 ABG Base Excess 0.0 mmol/L (-2.0-2.0) 12/09/21 19:40 Jace Test Pos 12/09/21 19:40 Hematocrit 34.9 % (42-52) L 12/09/21 19:40 O2 Delivery Device None 12/09/21 19:40 FiO2 21.0 % 12/09/21 19:40 Electric Meter Repairer ID [id number] 12/09/21 19:40 Sodium 136 mmol/L (136-145) 12/09/21 18:28 Potassium 3.9 mmol/L (3.5-5.1) 12/09/21 18:28 Chloride 103 mmol/L (98-107) 12/09/21 18:28 Carbon Dioxide 18 mmol/L (22-29) L 12/09/21 18:28 Anion Gap 18.9 (5-19) 12/09/21 18:28 BUN 20 mg/dL (8-23) 12/09/21 18:28 Creatinine 1.0 mg/dL (0.7-1.2) 12/09/21 18:28 GFR Calculation 75.0 mL/min (90-130) L 12/09/21 18:28 Glucose 125 mg/dL (65-115) H 12/09/21 18:28 Calculated Osmolality 286 mOsm/kg (285-295) 12/09/21 18:28 Calcium 9.4 mg/dL (8.5-10.5) 12/09/21 18:28 Total Bilirubin 3.5 mg/dL (0.15-1.2) H 12/09/21 18:28 AST 70 U/L (0-40) H 12/09/21 18:28 ALT 21 U/L (0-41) 12/09/21 18:28 Alkaline Phosphatase 120 IU/L (40-130) 12/09/21 18:28 Ammonia 95 umol/L (16-60) H 12/09/21 20:12 Troponin T Baseline 176 ng/L (0-15) H* 12/09/21 18:28 Troponin T 120 Minute 213.9 ng/L (0-15) H 12/09/21 20:03 Delta Troponin T 37.9 ABS# (0-10) H* 12/09/21 20:03 Total Protein 7.6 g/dL (6.6-8.7) 12/09/21 18:28 Albumin 2.6 g/dL (3.5-5.2) L 12/09/21 18:28 Globulin 5.0 g/dL (1.3-4.6) H 12/09/21 18:28 Lipase 47 U/L (13-60) 12/09/21 18:28 TSH 1.98 uIU/mL (0.27-4.20) 12/09/21 18:28 Free T4 1.65 ng/dL (0.82-1.77) 12/09/21 18:28 Urine Color Dark yellow (Yellow) 12/09/21 17:38 Urine Appearance Clear (CLEAR) 12/09/21 17:38 Urine pH 5 (5-7) 12/09/21 17:38 Ur Specific [place] 1.020 (1.005-1.030) 12/09/21 17:38 Urine Protein 1+ (Negative) H 12/09/21 17:38 Urine Glucose (UA) Norm (Normal) 12/09/21 17:38 Urine Ketones Negative (Negative) 12/09/21 17:38 Urine Blood 3+ (Negative) H 12/09/21 17:38 Urine Nitrate Negative (Negative) 12/09/21 17:38 Urine Bilirubin 1+ (Negative) H 12/09/21 17:38 Urine Urobilinogen 4 mg/dL (Negative) H 12/09/21 17:38 Ur Leukocyte Esterase Negative (Negative) 12/09/21 17:38 Urine RBC >100 /hpf (0-2) H 12/09/21 17:38 Urine WBC 5-10 /hpf (0-5) H 12/09/21 17:38 Ur Squamous Epith Cells 0-4 /hpf (0-5) H 12/09/21 17:38 Amorphous Sediment Not Reportable 12/09/21 17:38 Urine Bacteria Trace /hpf (NONE) 12/09/21 17:38 Hyaline Casts 0-4 /lpf H 12/09/21 17:38 Urine Mucus Trace /hpf 12/09/21 17:38 Salicylates < 0.3 mg/dL (3-10) L 12/09/21 18:28 Urine Opiates Screen Negative ng/mL (Negative) 12/09/21 17:38 Acetaminophen < 5.0 ug/mL (10-30) L 12/09/21 18:28 Ur Barbiturates Screen Negative ng/mL (Negative) 12/09/21 17:38 Ur Phencyclidine Scrn Negative ng/mL (Negative) 12/09/21 17:38 Ur Amphetamines Screen Negative ng/mL (Negative) 12/09/21 17:38 U Benzodiazepines Scrn Negative ng/mL (Negative) 12/09/21 17:38 Urine Cocaine Screen Negative ng/mL (Negative) 12/09/21 17:38 U Marijuana (THC) Screen Negative ng/mL (Negative) 12/09/21 17:38 Ethyl Alcohol < 10 mg/dL (0-10) 12/09/21 20:03 Blood Type O Negative 12/09/21 17:19 Rho(D) Type Negative 12/09/21 17:19 Antibody Screen Negative 12/09/21 17:19 A&P Assessment and plan (1) Altered mental status: 65M with PMH known hep C related cirrhosis, known portal hypertension and chronic liver disease presenting with AMS, elevated ammonia with signs and symptoms consistent with acute hepatic encephalopathy. Ammonia level >90 Start lactulose rectally q6h scheduled to titrate to 4-5 BM per day Holding off on PO medications until patient more awake and able to swallow Start rifaximin 550 BID once able to take po intake Holding off on NGT placement given known esophgeal varices CT head without acute intracranial abnormalities. Soft tissue and periorbital hematomas noted, related to recent fall at home. Gross ascites noted on CT abdomen along with generalized anasarca- cannot exclude possible SBP at this time as being precipitant of HE. Empiric Ceftriaxone 1g iv daily US guided paracentesis with peritoneal fluid analysis ordered for AM. Status: Acute (2) Acute hepatic encephalopathy: related to known cirrhosis and portal HTN Status: Acute (3) Cirrhosis: Status: Acute (4) Elevated troponin: Unable to assess for chest pain currently however states that patient has n ot had any c/o chest pain at home EKG without acute ST-T wave chnages Suspect that findings of elevated troponin are related to type 2 ME from acute stressor/ anasarca/ large pleural effusion Last echo from 09/23 with EF 60% repeat echocardiogram to assess for development of interim wall motion abnormalities Trend troponin and EKG at 6 hrs Received full dose lovenox x 1 in ER, holding off on further doses for now given thrombocytopenia and high risk of GI bleeding. Will await echocardiogram findings Status: Acute (5) Portal hypertension: related to cirrhosis has received outapteint referral for hepatology Status: Acute (6) Anasarca: Start lasix 40mg iv q24h Monitor urine output and kidney function Pinon placement for accurate I/O Status: Acute (7) Thrombocytopenia: At recent baseline of 88 Most likely related to chronic liver disease Status: Acute (8) Chronic liver disease and cirrhosis: As evidenced by cirrhosis, portal HTN, hepatic enecphalopathy, coagulaopathy , elevated T. bili MELD score 19 based on current parameters Status: Acute Attestations Medical Necessity Statement*: >2midnight admission is warranted for management and evaluation of acute hepatic encephalopathy, gross anasarca needs iv diuresis, suspected SBP, NSTEMI vs type 2 ME Coding Level of Care Code Acute Cardiac Cath Rn for [facility] Fwd Diagnoses Cirrhosis K74.60 Elevated troponin R77.8 Altered mental status R41.82 Acute hepatic encephalopathy K72.00 Portal hypertension K76.6 Anasarca R60.1 Thrombocytopenia D69.6 Chronic liver disease and cirrhosis K74.60; K76.9
[2021-12-10] VITALS (76 sets, daily range): BP systolic 88–146; BP diastolic 48–87; PULSE 59–92; RESP 0–33; TEMP 36.8–37.5; O2SAT 82–99; BMI 33.9
--- NOTE | 2021-12-10 00:08 | ECG_ITS ---
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 Measurements Intervals [place] Rate: 78 P: 53 MN: 140 QRS: 53 QRSD: 86 T: 30 QT: 350 QTc: 399 Interpretive Statements SINUS RHYTHM LOW QRS VOLTAGE [QRS DEFLECTION < 0.5/1.0 mV IN LIMB/CHEST LEADS] MINIMAL ST DEPRESSION [0.025+ mV ST DEPRESSION] Compared to ECG 12/09/2021 19:40:31 ST (T wave) deviation now present T-wave abnormality no longer present Electronically Signed On 12-10-2021 23:18:40 FARM MANAGEMENT SUPERVISOR by Kale Monson M.D. [id number]
[2021-12-10] MEDS: FUROsemide 10 mg/mL SDV 4mL 40 MG IVP (00:34)
--- NOTE | 2021-12-10 02:03 | ECG_ITS ---
[facility] Test Date: 2021-12-10 Pat Name: Simeon Roland Department: Room: [facility] Gender: Male Rehab Aid: : 1955 Requested By: Devin Delacruz Order Number: [id number] Cecil MD: Kale Monson M.D. Measurements Intervals [place] Rate: 85 P: 56 OR: 132 QRS: 52 QRSD: 89 T: 56 QT: 377 QTc: 450 Interpretive Statements SINUS RHYTHM LOW QRS VOLTAGE [QRS DEFLECTION < 0.5/1.0 mV IN LIMB/CHEST LEADS] POSSIBLE ANTERIOR MYOCARDIAL INFARCTION , PROBABLY OLD [30 ms Q WAVE IN V3/V4, OR R < 0.2 mV IN V4] Diffuse T wave changes INTERPRETATION BASED ON A DEFAULT AGE OF 40 YEARS Compared to ECG 12/10/2021 00:22:43 Myocardial infarct finding now present ST (T wave) deviation no longer present Electronically Signed On 12-10-2021 23:20:00 WHITE SHOE RAGGER by Kale Monson M.D. [id number]
--- NOTE | 2021-12-10 02:41 | USCV_ITS ---
Simeon Roland Age: 65 Gender: M : 1955 Exam Date: 12/10/2021 02:54 Ordering Phys: Barbara Nicolas MD Technologist: Zahida Blankenship Exam Location: [facility] [place] Indication: NSTEMI BP: 113 / 58 HR: 78 Rhythm: Sinus Technical Quality: Adequate MEASUREMENTS (Male / Female) Normal Values 2D ECHO LV Diastolic Diameter PLAX 4.3 cm 4.2 - 5.9 / 3.9 - 5.3 cm LV Systolic Diameter PLAX 1.8 cm IVS Diastolic Thickness 1.3 cm 0.6 - 1.0 / 0.6 - 0.9 cm IVS Systolic Thickness 2.4 cm LVPW Diastolic Thickness 1.1 cm 0.6 - 1.0 / 0.6 - 0.9 cm LVPW Systolic Thickness 1.8 cm LVOT Diameter 2.0 cm LV Ejection Fraction 2D Teich 88.0 % LV Ejection Fraction MOD 2C 83.0 % LV Ejection Fraction 2C AL 84.6 % LA Diameter 3.2 cm LA Width 2.6 cm LA Height 3.0 cm RA Width 2.2 cm RA Height 3.6 cm Aorta at Sinotubular Diameter 2.8 cm M-MODE Aortic Annulus Diameter 3.5 cm LA Ao Ratio MM 0.8 MV E Point Septal Separation 0.5 cm DOPPLER AV Peak Velocity 189.0 cm/s LVOT Peak Velocity 150.0 cm/s AV Area Cont Eq vti 3.6 cm squared AV Area Cont Eq pk 2.5 cm squared MV Peak Velocity 124.0 cm/s MV Area PHT 2.1 cm squared Mitral E to A Ratio 0.9 MV E' Velocity 60.0 cm/s Mitral E to MV E' Ratio 7.8 Mitral E to LV E' Lateral Ratio 5.8 Mitral E to LV E' Septal Ratio 11.5 TV Peak E Velocity 75.0 cm/s PV Peak Velocity 93.0 cm/s RV Acceleration Time 0.1 s RV Ejection Time 0.3 s RV AcT/ET 0.3 FINDINGS Left Ventricle Normal left ventricular cavity size. Normal left ventricular systolic function. Left ventricular ejection fraction is estimated at 70 %. No diagnostic regional wall motion abnormalities. Normal diastolic function. Right Ventricle Normal right ventricular size and systolic function. Right Atrium Right atrium not well visualized. Left Atrium Mildly increased left atrial size. Mitral Valve Mild mitral annular calcification. Thickened mitral valve. No mitral valve stenosis. No significant mitral valve regurgitation. Aortic Valve Aortic valve not well visualized. No aortic valve stenosis. No aortic valve regurgitation. Tricuspid Valve Structurally normal tricuspid valve. Trace tricuspid valve regurgitation. Pulmonic Valve Pulmonic valve not well visualized. Pericardium Large left pleural effusion. No pericardial effusion. Aorta Aorta not well visualized. CONCLUSIONS 1. This is a technically difficult study. 2. Normal left ventricular cavity size and systolic function. Left ventricular ejection fraction is estimated at 70 %. No diagnostic regional wall motion abnormalities. Normal diastolic function. 3. Large left pleural effusion. 4. When compared to previous echocardiogram done 12 September 2021, there may not have been any significant change. Bridget Silva MD (Electronically Signed) Final Date: 10 December 2021 13:56 S
--- NOTE | 2021-12-10 02:41 | US_ITS ---
WS: [id number] ULTRASOUND-GUIDED PARACENTESIS CLINICAL INFORMATION: large volume ascites, known liver cirrhosis COMPARISON: None. Procedure Informed consent: The risks, benefits, and alternatives of the procedure were discussed with the elvia ent. Verbal and written consent was obtained. Timeout: A timeout was performed to confirm the correct patient, procedure, and site. Preparation: A suitable skin site was identified. The patient was prepped and draped in usual sterile fashion. Lidocaine 1% was used for local anesthesia. Catheter: 4 Sinhala One-step Wave Semiconductoreh catheter. Side: LEFT Lower quadrant. Fluid Volume: 5000 ml Color: Clear yellow DISPOSITION: 50 cc sent for requested diagnostic tests. Complications: None. US/US paracentesis abd w [id number] IMPRESSION: Uncomplicated ultrasound-guided paracentesis. Removal of 5000 cc of ascites
[2021-12-10 03:53] LABS: Basophils % 0.5 %; Eosinophils # 0.2 10^3/uL (0.0-0.8); Eosinophils % 2.4 %; Hematocrit 27.6 % (42.0-52.0); Hemoglobin 10.2 g/dL (11.7-16.6); Lymphocytes # 3.2 10^3/uL (0.8-4.8); Lymphocytes % 38.5 %; Mean Corpuscular Hemoglobin 38.6 pg (28.0-34.0); Mean Corpuscular Volume 104.5 fl (80-94); Mean Platelet Volume 11.7 fL (7.4-10.4); Monocytes # 0.6 10^3/uL (0.2-0.9); Monocytes % 7.7 %; Neutrophils # 4.15 10^3/uL (1.8-7.7); Neutrophils % 50.8 %; Nucleated Red Blood Cells % 0 %; Platelet Count 66 10^3/cmm (130-400); Red Blood Count 2.64 10^6/uL (4.1-5.3); Red Cell Distribution Width 18.8 % (12.1-15.1); White Blood Count 8.2 10^3/uL (4.0-10.0)
[2021-12-10 04:14] LABS: Total Bilirubin 2.7 mg/dL (0.15-1.2)
[2021-12-10 04:15] LABS: Alanine Aminotransferase 18 U/L (0-41); Alkaline Phosphatase 79 IU/L (40-130); Anion Gap 14.5 (5-19); Aspartate Amino Transferase 59 U/L (0-40); Blood Urea Nitrogen 18 mg/dL (8-23); Carbon Dioxide 23 mmol/L (22-29); Chloride 105 mmol/L (98-107); Globulin 3.7 g/dL (1.3-4.6); Glomerular Filtration Rate 67.2 mL/min (90-130); Glucose 113 mg/dL (65-115); Magnesium 1.1 mg/dL (1.7-2.3); Osmolality Calculated 291 mOsm/kg (285-295); Potassium 3.5 mmol/L (3.5-5.1); Sodium 139 mmol/L (136-145); Total Bilirubin 2.7 mg/dL (0.15-1.2); Total Protein 5.7 g/dL (6.6-8.7)
[2021-12-10] MEDS: lactulose oral liq 20 gm/30 mL UDC 200 GM PR ×3 (04:15→16:30)
[2021-12-10 04:27] LABS: Troponin T (5th) Once 200 ng/L (0-15)
--- NOTE | 2021-12-10 04:35 | PC.NURSE ---
Rectal Tube Order Lactulose enema ordered with instructions to administer through a rectal balloon catheter. Dr. Nicolas contacted and order clarified. Enema to be administered through rectal tube. Verbal order received to insert rectal tube. Orders carried out as indicated
[2021-12-10 04:45] LABS: HIV 1 & 2 Antibody Non-Reactive (Non-Reactiv); HIV 1 & 2 Antigen Non-Reactive (Non-Reactiv)
--- NOTE | 2021-12-10 05:20 | PC.NURSE ---
Rectal Tube Out Upon assessment of patient, rectal tube sitting in patient bed out of patient body. Tube reinserted; following this patient pushed tube out of rectum again. Reinsertion attempted two more times to the same result. Rectal tube no longer in patient. Receiving nurse aware.
--- NOTE | 2021-12-10 09:17 | P.PN_ITS ---
Subjective Subjective: Patient examined in the ICU, noticed left-sided facial droop however he is able to follow commands, oriented to himself, able to move all of his extremities Anasarca Ascites Nontender abdomen Hemoglobin 10.2 Afebrile Soft blood pressure requested albumin scheduled doses Pending paracentesis Thrombocytopenia noted Patient has skin excoriation, facial ulcer, psoriasis Hypokalemia, hypomagnesemia noted I will advance his diet today from n.p.o. to full liquid Vitals/I&O/Wt Last Vital Signs Temp 98.5 F 12/10/21 08:30 Pulse 86 12/10/21 08:30 Resp 18 12/10/21 08:30 BP 99/55 12/10/21 08:30 Pulse Ox 96 12/10/21 08:30 12/09/21 12/10/21 12/10/21 22:59 06:59 14:59 Intake Total 300 / 300 Output Total 1700 / 1700 Balance 300 / 300 -1700 / -1400 Weight last 48 hrs Weight 101.151 kg Weight 95.254 kg Physical Exam Narrative: Patient is oriented to himself Generalized anasarca Nontender abdomen Ascites Not able to completely follow commands however able to tell me his name Noted left-sided facial droop Yellow crusting noted around right eyes Bilateral breath sounds, diminished Saturating well on room air No active wheezing noted S1, S2 Urinary Catheter Management: Pinon: Cath Placed During This Visit: yes Reason for Continuing Indwelling Catheter: Accurate Measurement of Urinary Output in Critically Ill Patients Urinary Catheter Date of Insertion: 12/09/21 Urinary Catheter Time of Insertion: 17:35 Data : 12/10/21 03:20 12/10/21 03:20 Micro: Microbiology 12/09/21 18:28 Blood Culture - Preliminary Blood SPECIMEN COLLECTED 12/09/21 17:15 Blood Culture - Preliminary Blood SPECIMEN COLLECTED A&P Assessment and plan (1) Chronic liver disease and cirrhosis: Status: Acute (2) Thrombocytopenia: Status: Acute (3) Anasarca: Status: Acute (4) Portal hypertension: Status: Acute (5) Cirrhosis: Status: Acute (6) Elevated troponin: Status: Acute (7) Altered mental status: Status: Acute (8) Acute hepatic encephalopathy: Status: Acute (9) Chronic hepatitis C: Status: Acute Plan Hepatitis C induced liver cirrhosis Decompensated Acute hepatic encephalopathy Ammonia level 95 Continue rifaximin lactulose Titrate to 2-3 bowel movements a day Rule out SBP: Continue ceftriaxone Paracentesis today NSTEMI:? No active chest pain No ischemic changes on EKG Not a good candidate to be on any anticoagulating agent platelet count 66,000 Advance diet from n.p.o. to full liquid Meld score 19 Start albumin scheduled dosages Lipase 47 Full code Hypomagnesemia, hypokalemia: Repleted Attestations Medical Necessity Statement*: Continue hospitalization Time Spent in Patient Care: 20min Coding Level of Care Code Acute Director Of Sustainability for [facility] Fwd Diagnoses Chronic liver disease and cirrhosis K74.60; K76.9 Thrombocytopenia D69.6 Anasarca R60.1 Portal hypertension K76.6 Cirrhosis K74.60 Elevated troponin R77.8 Altered mental status R41.82 Acute hepatic encephalopathy K72.00 Chronic hepatitis C B18.2
--- NOTE | 2021-12-10 10:02 | PC.CHAP ---
Pastoral Care Encounter/Spiritual Assessment Type of Contact [] Declined financial analyst intern visit [] Patient/Family/Request visit [] Outpatient visit [] Follow-up visit [] Physician referral [] Code/Alert [x] Routine visit [] Staff referral [] Actively dying [] Patient sleeping [x Family support [] [] Out of room [] Palliative care [] [] Receiving care in room [] Pre-surgical visit [] Trauma [] Long length of stay [x] ICU visit [x] Other: sitter... patient disoriented.. present Relational/Emotional Strength [] Patient feels connected with others/family/visitors/staff [] Distress [] Loneliness/isolation [] Abandonment Spirituality of Patient [] Person of Nguyen [] Attends Protestant of their Nguyen [] Believes in Prayer [] Reads Bible or Denominational materials [] There are Spiritual issues to be addressed Clothing Cutter Interventions [x] Prayer [] Active listening [] Non-anxious presence [] Spiritual/emotional support [] Crisis/trauma care [] Spiritual counseling [] Bereavement support [] Provided bereavement packet [] Provided Bible/devotional materials [] Provided toy/stuffed animal, coloring book to patient or family member [] Provided Communion [] Anointing/[place] [] Salvation [x] Completed spiritual assessment [] Other: Impact on Illness or Injury [] Angry [] Fearful [] Anxious [] Often cries [] Exhaustion [] Unable to work [] Unable to attend restorationism [] Unable to walk/stand [] Unable to read [] Unable to drive [] Unable to eat/drink [] Unable to sleep [] Unable to be with family [] Patient intubated [] Other: Summary Time spent with patient
[2021-12-10] MEDS: potassium chloride oral liq 20 mEq/15 mL UDC 40 MEQ PO (10:09)
[2021-12-10 11:25] LABS: Glucose Point of Care 127 mg/dL (70-110)
[2021-12-10 14:26] LABS: Apprearance, Body Fluid CLEAR; Color, Body Fluid YELLOW
[2021-12-10 14:27] LABS: Body Fluid Polynuclear #Cells 0.015; Body Fluid WBC 138 /uL; Monocytes # Body Fluid 0.123; RBC, Body Fluid 0 10^3/uL
[2021-12-10 14:57] LABS: Albumin Body Fluid 0.6 g/dL; Amylase Body Fluid 21 U/L; Cholesterol Body Fluid 20 mg/dL (0-200); Fluid Alkaline Phos. 10 IU/L; LDH Body Fluid 42 U/L; Total Protein Body Fluid 0.9 g/dL
[2021-12-10 14:58] LABS: Triglycerides Body Fluid 51 mg/dL (0-150); Uric Acid Body Fluid 10 mg/dL
--- NOTE | 2021-12-10 15:31 | PC.NURSE ---
NUrse assisted Dr Gonzalez and tire maintenance technician janine with paracentesis. Procedure was uneventful. 5 liters of fluid drained.
[2021-12-10 15:53] LABS: Body Fluid Specific Gravity 1.015; PATH Referral YES
--- NOTE | 2021-12-10 18:35 | PC.NURSE ---
Shift Summary: Uneventful shift. Patient rested in bed throughout the day. Mental status has improved. Was initially unable to answer any questions, would have an incomprehensible moan as response. He is now alert to person, and place, but not reliably so. He is also able to communicate basics need such as being thirsty, hungry or uncomfortable. Patient has receceived 2 300mL lactulose enmas today and it has not produced a bowel movement. Patient had a paracentesis today at bedside. Procedure was uneventful. 5 Liters of fluid were drained form left abdominal region. 350 mL of urine output today.
[2021-12-10] MEDS: pantoprazole 40 mg SDV IVP (21:25)
[2021-12-10] MEDS: lactulose oral liq 20 gm/30 mL UDC 30 GM PO (22:19)
[2021-12-10] MEDS: cefTRIAXone 2,000 MG in sodium chloride 0.9% (plus) 50 ML 100 MG IV (23:00)
--- NOTE | 2021-12-11 00:04 | PC.NURSE ---
Received report from Amanda URENA. All questions answered. Transferred patient in bed to room 271. is at bedside as sitter. No complaints of nausea. Is uncomfortable, but got some relief from turning. IV antibiotic is finishing up.
[2021-12-11 03:57] VITALS: BP 136/78; PULSE 80; RESP 17; TEMP 37.1; O2SAT 93
[2021-12-11 04:31] LABS: Basophils % 0.3 %; Eosinophils # 0.1 10^3/uL (0.0-0.8); Eosinophils % 2.8 %; Hematocrit 24.8 % (42.0-52.0); Lymphocytes # 1.8 10^3/uL (0.8-4.8); Lymphocytes % 49.3 %; Mean Corpuscular HGB Conc 36.3 g/dL (30.0-36.0); Mean Corpuscular Volume 104.6 fl (80-94); Mean Platelet Volume 11.5 fL (7.4-10.4); Monocytes # 0.3 10^3/uL (0.2-0.9); Monocytes % 8.2 %; Neutrophils # 1.39 10^3/uL (1.8-7.7); Neutrophils % 39.1 %; Nucleated Red Blood Cells % 0 %; Platelet Count 45 10^3/cmm (130-400); Red Blood Count 2.37 10^6/uL (4.1-5.3); Red Cell Distribution Width 18.8 % (12.1-15.1); White Blood Count 3.6 10^3/uL (4.0-10.0)
[2021-12-11 04:45] LABS: Alanine Aminotransferase 16 U/L (0-41); Albumin Level 2.6 g/dL (3.5-5.2); Alkaline Phosphatase 61 IU/L (40-130); Anion Gap 14.5 (5-19); Aspartate Amino Transferase 46 U/L (0-40); Blood Urea Nitrogen 14 mg/dL (8-23); Calcium 9.1 mg/dL (8.5-10.5); Carbon Dioxide 23 mmol/L (22-29); Chloride 107 mmol/L (98-107); Glucose 113 mg/dL (65-115); Magnesium 1.2 mg/dL (1.7-2.3); Osmolality Calculated 293 mOsm/kg (285-295); Potassium 3.5 mmol/L (3.5-5.1); Sodium 141 mmol/L (136-145); Total Bilirubin 3.3 mg/dL (0.15-1.2); Total Protein 5.6 g/dL (6.6-8.7)
[2021-12-11 04:52] LABS: Procalcitonin 0.12 ng/mL (0-0.5)
[2021-12-11] MEDS: FUROsemide 10 mg/mL SDV 4mL 20 MG IVP (06:16)
[2021-12-11 08:21] VITALS: BP 131/68; PULSE 84; RESP 16; TEMP 36.7; O2SAT 96
--- NOTE | 2021-12-11 09:17 | PM.PN ---
Subjective Subjective: Patient 1 bowel movement, encephalopathy improved at the bedside 5 L paracentesis Received albumin Will be discharged home tomorrow Patient does not want to go to [facility] and does not want home health services Vitals/I&O/Wt Last Vital Signs Temp 98.1 F 12/11/21 08:21 Pulse 84 12/11/21 08:21 Resp 16 12/11/21 08:21 BP 131/68 12/11/21 08:21 Pulse Ox 96 12/11/21 08:21 12/10/21 12/11/21 12/11/21 22:59 06:59 14:59 Intake Total 100 / 200 Output Total 5550 / 5550 460 / 6010 1400 / 1400 Balance -5550 / -5450 -360 / -5810 -1400 / -1400 Weight last 48 hrs Weight 90.356 kg Weight 101.151 kg Weight 95.254 kg Physical Exam Narrative: Patient lying supine Mentation improved No active extra excess Nontender abdomen Edema of legs noted Pinon catheter draining dilute urine S1, S2 Satting well on room air No active strokelike features Nonfocal neuro exam Urinary Catheter Management: Pinon: Cath Placed During This Visit: yes Reason for Continuing Indwelling Catheter: Accurate Measurement of Urinary Output in Critically Ill Patients Urinary Catheter Date of Insertion: 12/09/21 Urinary Catheter Time of Insertion: 17:35 Data : 12/11/21 03:52 12/11/21 03:52 Micro: Microbiology 12/09/21 17:38 Urine Culture - Final Urine,Clean Catch 12/09/21 18:28 Blood Culture - Preliminary Blood NEGATIVE TO DATE 12/09/21 17:15 Blood Culture - Preliminary Blood NEGATIVE TO DATE A&P Assessment and plan (1) Chronic liver disease and cirrhosis: Status: Acute (2) Thrombocytopenia: Status: Acute (3) Anasarca: Status: Acute (4) Portal hypertension: Status: Acute (5) Cirrhosis: Status: Acute (6) Elevated troponin: Status: Acute (7) Altered mental status: Status: Acute (8) Acute hepatic encephalopathy: Status: Acute (9) Chronic hepatitis C: Status: Acute (10) Hypertension: Status: Acute Plan Acute hepatic encephalopathy Improved Continue rifaximin and lactulose No signs of SBP Continue ceftriaxone because of portal hypertension history We will give him referral to see top stop attacher at the time of discharge Hemoglobin stable No active bleeding Coagulopathy related to liver cirrhosis No active bleeding. Meld score 19 He will need TIPS NSTEMI: Type II SD? No acute chest pain EF 70%, No significant change Large left-sided pleural effusion Patient is doing well on room air Continue diuretics for now Secondary to thrombocytopenia not an ideal candidate for thoracentesis Full code Diet advanced to GI soft Electrolyte: Replenished Remove Pinon catheter today Plan to discharge him tomorrow Attestations Medical Necessity Statement*: Discharge tomorrow Time Spent in Patient Care: 20min Coding Level of Care Code Acute Soda Column Operator for Chg Fwd Diagnoses Chronic liver disease and cirrhosis K74.60; K76.9 Thrombocytopenia D69.6 Anasarca R60.1 Portal hypertension K76.6 Cirrhosis K74.60 Elevated troponin R77.8 Altered mental status R41.82 Acute hepatic encephalopathy K72.00 Chronic hepatitis C B18.2 Hypertension I10
--- NOTE | 2021-12-11 10:44 | PC.CHAP ---
Pastoral Care Encounter/Spiritual Assessment Type of Contact [] Declined epic kaleidoscope analyst visit [] Patient/Family/Request visit [] Outpatient visit [] Follow-up visit [] Physician referral [] Code/Alert [x] Routine visit [] Staff referral [] Actively dying [] Patient sleeping [] Family support [] [] Out of room [] Palliative care [] [x] Receiving care in room [] Pre-surgical visit [] Trauma [x] Long length of stay [] ICU visit [] Other: Relational/Emotional Strength [x] Patient feels connected with others/family/visitors/staff [] Distress [] Loneliness/isolation [] Abandonment Spirituality of Patient [x] Person of Nguyen [] Attends Scientology of their Nguyen [x] Believes in Prayer [] Reads Bible or Sikh materials [] There are Spiritual issues to be addressed Welder Oxyhydrogen Interventions [x] Prayer [x] Active listening [x] Non-anxious presence [x] Spiritual/emotional support [] Crisis/trauma care [x] Spiritual counseling [] Bereavement support [] Provided bereavement packet [] Provided Bible/devotional materials [] Provided toy/stuffed animal, coloring book to patient or family member [] Provided Communion [] Anointing/[place] [] Salvation [x] Completed spiritual assessment [] Other: Impact on Illness or Injury [] Angry [] Fearful [x] Anxious [] Often cries [] Exhaustion [x] Unable to work [] Unable to attend voodoo [] Unable to walk/stand [] Unable to read [] Unable to drive [] Unable to eat/drink [] Unable to sleep [] Unable to be with family [] Patient intubated [] Other: Summary low surger and low body system does not know about health results +1 Time spent with patient 10 mins
[2021-12-11 11:16] VITALS: BP 132/65; PULSE 77; RESP 17; TEMP 37.1; O2SAT 98
[2021-12-11 15:55] VITALS: BP 147/76; PULSE 85; RESP 17; TEMP 37.1; O2SAT 99
[2021-12-11 19:41] VITALS: BP 163/75; PULSE 97; RESP 17; TEMP 36.8; O2SAT 95
[2021-12-11] MEDS: lactulose oral liq 20 gm/30 mL UDC 30 GM PO (20:27)
[2021-12-11] MEDS: cefTRIAXone 1,000 MG in sodium chloride 0.9% (plus) 50 ML 100 MG IV (22:18)
[2021-12-12] VITALS: BP 154/66; PULSE 90; RESP 17; O2SAT 95
[2021-12-12 03:27] LABS: Basophils % 0.5 %; Eosinophils # 0.2 10^3/uL (0.0-0.8); Eosinophils % 4.3 %; Hematocrit 26.7 % (42.0-52.0); Hemoglobin 9.5 g/dL (11.7-16.6); Lymphocytes # 1.7 10^3/uL (0.8-4.8); Lymphocytes % 41.3 %; Mean Corpuscular HGB Conc 35.6 g/dL (30.0-36.0); Mean Corpuscular Hemoglobin 38.3 pg (28.0-34.0); Mean Corpuscular Volume 107.7 fl (80-94); Mean Platelet Volume 10.8 fL (7.4-10.4); Monocytes # 0.4 10^3/uL (0.2-0.9); Monocytes % 8.7 %; Neutrophils # 1.85 10^3/uL (1.8-7.7); Neutrophils % 44.5 %; Nucleated Red Blood Cells % 0 %; Platelet Count 45 10^3/cmm (130-400); Red Blood Count 2.48 10^6/uL (4.1-5.3); Red Cell Distribution Width 18.7 % (12.1-15.1); White Blood Count 4.2 10^3/uL (4.0-10.0)
[2021-12-12 03:47] LABS: Alanine Aminotransferase 16 U/L (0-41); Albumin Level 3.1 g/dL (3.5-5.2); Alkaline Phosphatase 89 IU/L (40-130); Anion Gap 14.2 (5-19); Aspartate Amino Transferase 41 U/L (0-40); Blood Urea Nitrogen 10 mg/dL (8-23); Calcium 9.4 mg/dL (8.5-10.5); Carbon Dioxide 23 mmol/L (22-29); Chloride 110 mmol/L (98-107); Globulin 3.1 g/dL (1.3-4.6); Glucose 137 mg/dL (65-115); Osmolality Calculated 299 mOsm/kg (285-295); Potassium 3.2 mmol/L (3.5-5.1); Sodium 144 mmol/L (136-145); Total Bilirubin 3.3 mg/dL (0.15-1.2); Total Protein 6.2 g/dL (6.6-8.7)
[2021-12-12 04:00] VITALS: BP 157/82; PULSE 90; RESP 18; TEMP 36.8; O2SAT 99
[2021-12-12 06:00] VITALS: PULSE 90; BMI 29.7
--- NOTE | 2021-12-12 07:28 | PM.DCS ---
Discharge Providers Date of Admission: 12/10/21 00:07 Date of Discharge: December 12, 2021 Attending Provider at Admission: Barbara Nicolas MD Attending Provider at Discharge: Lissette Crane MD Primary Care Provider: Moshe Bender Diagnoses at Discharge Discharge Diagnosis (1) Chronic liver disease and cirrhosis: Status: Acute (2) Thrombocytopenia: Status: Acute (3) Anasarca: Status: Acute (4) Portal hypertension: Status: Acute (5) Cirrhosis: Status: Acute (6) Elevated troponin: Status: Acute (7) Altered mental status: Status: Acute (8) Acute hepatic encephalopathy: Status: Acute (9) Chronic hepatitis C: Status: Acute (10) Hypertension: Status: Acute Reason for Visit Reason for Visit: Dr sent for Low Plattlet count and had a fall Hospital Course Hospital Course This note was done by admitting doctor Dr. Nicolas Simeon Roland is a 65 year old male with known PMH Hep C cirrhosis, known portal HTN, treated HEP C 2019, last VL not detected, alcohol dependence until May 2021, presenting to the ER today with AMS. History is obtained by talking to his at bedside as patient is unable to participate in any history due to confusion. Patient has been experiencing increasing confusion and disorientation dating back to September 2021. Innitially episodes were with increased somnolence, confusion such as putting on trousrs on hands, putting on robes? backwards etc and some memory gaps. Over this past weekend is Wednesday), he has continued to be become more disoriented. Yesterday night and again this morning, patient was noted to be unsteady on his feet and suffered a fall in the doorway. He was instructed by his PCP to present to the ER for further evaluation. Patient was recently seen by heme/onc for chronic thormbocytopenia and underwent w/up with differentials including chronic liver disease, ITP etc. Reent b12, folate levels were WNL. He was referred to see hepatology in [place]. Patient has additionally been developing increasing anasarca over the past few days, takes lasix 20mg once a week without any recent changes in his dose. Per , he was diagnosed with high ammonia levels back in 09/2021 as well however no laxatives are currently seen on his home medication list. He has a diffuse rash over his face which is related to diagnosis of Psoriasis, he has been using topical steroids for the same. Additionally noted are multiple bruises over B/L Arms and superficial skin tears B/L arms as well. w/up in the ER shows elevated ammonia level at 95, elevated T.bili, INR 1.9, elevated troponin baseline at 176, 2 hr delta at 35. he has received one dose of lovenox 1mg/kg for possible NSTEMI. No significant ST-T wave changes on EKG. Patient unable to tell me about chest pain however per has not had any compaints of chest pain, dyspnea, palpitations at home. No h/o fever. Hospital course Patient was admitted to ICU for hepatic encephalopathy and concern for SBP. SBP was ruled out with paracentesis. He was kept on ceftriaxone. His ammonia level was high, he was kept on rifaximin and lactulose. His mentation improved. He was kept on scheduled albumin during his hospitalization which improved his blood pressure. 5 L removed with paracentesis. He has pleural effusion, secondary to thrombocytopenia decision was made to hold off on thoracentesis during this hospitalization. He did not become hypoxic, he remained on room air, afebrile.. He was discharged on Lasix, spironolactone, rifaximin and lactulose. He has been given referral to see Dr. Pritchard broke man in [place]. Patient will need TIPS procedure however his meld score is above 15, at the time of admission his meld score was 19. was updated, they are also following up with Dr. Blanchard. High risk for readmissions, recommended transfer from ER to [place] or [facility] if he gets recurrence of hepatic encephalopathy, worsening ascites for TIPS Physical Exam Narrative: Patient is awake and alert Anasarca Distended abdomen Nontender Saturating well on room air No asterixis 3+ pitting edema of legs Awake and alert able to answer my questions appropriately Urinary Catheter Management: Pinon: Cath Placed During This Visit: yes Reason for Continuing Indwelling Catheter: Acute Urinary Retention or Obstruction Urinary Catheter Date of Insertion: 12/09/21 Urinary Catheter Time of Insertion: 17:35 Discharge Data Studies Completed and Pending Completed Studies During Hospitalization Category Date Time Status CT chest abd pel wo con Routine Cat Scan 12/09/21 21:[address] head wo con* 27120 Urgent Cat Scan 12/09/21 16:36 Completed XR chest 1V portable [id number] Urgent Exams 12/09/21 16:46 Completed XR elbow RT 2V 65511 Urgent Exams 12/09/21 20:06 Completed CV. echo complete* 28150 Routine Ultrasound 12/10/21 02:41 Completed US paracentesis abd w 12047 Routine Ultrasound 12/10/21 02:41 Completed Pending at discharge Category Date Time Status Anaerobic Culture Routine Lab 12/10/21 13:30 Results Blood Culture Stat Lab 12/09/21 18:28 Results Body Fluid Culture & GS Routine Lab 12/10/21 13:30 Results COVID OZH [Coronavirus PCR] Routine Lab 12/09/21 22:11 Ordered Radiology Impressions Head CT 12/09/21 16:36 IMPRESSION: 1. No fracture or intracranial hemorrhage identified. 2. Left periorbital and infraorbital soft tissue contusion/hematoma. Chest X-Ray 12/09/21 16:46 IMPRESSION: 1. Hazy opacity in the left lung could represent a pulmonary infiltrate due to pneumonia or aspiration, and/or a pleural effusion. Elbow X-Ray 12/09/21 20:06 IMPRESSION: No acute findings. Chest/Abdomen/Pelvis CT 12/09/21 21:47 IMPRESSION: 1. Large left pleural effusion with left lung atelectasis and partial collapse of the left lower lobe. 2. Body wall edema, asymmetrically prominent in the left lateral chest wall. IMPRESSION: 1. Severe liver cirrhosis. 2. Portal venous hypertension with varices. 3. Large amount of ascites. 4. Cholelithiasis. 5. Diverticulosis of the distal colon. 6. Body wall edema. COMMENTS: Consistent with the [employer]'s Incidental Findings Committee white paper (J Am Sharri Radiol 2018): Any incidental renal lesion less than 1 cm or classified as too small to characterize, or any incidental cystic renal lesion characterized as simple-appearing, is likely benign. No follow-up imaging is recommended for these lesions per consensus recommendations based on imaging criteria. Paracentesis Ultrasound 12/10/21 02:41 IMPRESSION: Uncomplicated ultrasound-guided paracentesis. Removal of 5000 cc of ascites Laboratory Results WBC 4.2 10^3/uL (4.0-10.0) 12/12/21 02:51 RBC 2.48 10^6/uL (4.1-5.3) L 12/12/21 02:51 Hgb 9.5 g/dL (11.7-16.6) L 12/12/21 02:51 Hct 26.7 % (42.0-52.0) L 12/12/21 02:51 MCV 107.7 fl (80-94) H 12/12/21 02:51 MCH 38.3 pg (28.0-34.0) H 12/12/21 02:51 MCHC 35.6 g/dL (30.0-36.0) 12/12/21 02:51 RDW 18.7 % (12.1-15.1) H 12/12/21 02:51 Plt Count 45 10^3/cmm (130-400) L 12/12/21 02:51 MPV 10.8 fL (7.4-10.4) H 12/12/21 02:51 Neut % (Auto) 44.5 % 12/12/21 02:51 Lymph % (Auto) 41.3 % 12/12/21 02:51 [place] % (Auto) 8.7 % 12/12/21 02:51 Eos % (Auto) 4.3 % 12/12/21 02:51 Baso % (Auto) 0.5 % 12/12/21 02:51 Neut # (Auto) 1.85 10^3/uL (1.8-7.7) 12/12/21 02:51 Lymph # (Auto) 1.7 10^3/uL (0.8-4.8) 12/12/21 02:51 [place] # (Auto) 0.4 10^3/uL (0.2-0.9) 12/12/21 02:51 Eos # (Auto) 0.2 10^3/uL (0.0-0.8) 12/12/21 02:51 Baso # (Auto) 0.0 10^3/uL (0.0-0.1) 12/12/21 02:51 Nucleated RBC % (auto) 0 % 12/12/21 02:51 Nucleated RBCs # 0.0 /100WBC 12/12/21 02:51 Differential Comment Yes 12/10/21 13:30 PT 22.20 SECONDS (12.1-14.9) H 12/09/21 18:28 INR 1.90 (0.8-1.2) H 12/09/21 18:28 APTT 39.7 SECONDS (23.9-36.7) H 12/09/21 18:28 Specimen Type Arterial 12/09/21 19:40 Sample Site Radial, left 12/09/21 19:40 ABG pH 7.49 (7.35-7.45) H 12/09/21 19:40 ABG pCO2 29.4 mmHg (35-45) L 12/09/21 19:40 ABG pO2 64.5 mmHg (80.0-100.0) L 12/09/21 19:40 ABG HCO3 22.6 mmol/L (22-26) 12/09/21 19:40 ABG Base Excess 0.0 mmol/L (-2.0-2.0) 12/09/21 19:40 Jace Test Pos 12/09/21 19:40 Hematocrit 34.9 % (42-52) L 12/09/21 19:40 O2 Delivery Device None 12/09/21 19:40 FiO2 21.0 % 12/09/21 19:40 Pen Or Pencil Assembly Machine Operator ID [email or web address] 12/09/21 19:40 Sodium 144 mmol/L (136-145) 12/12/21 02:51 Potassium 3.2 mmol/L (3.5-5.1) L 12/12/21 02:51 Chloride 110 mmol/L (98-107) H 12/12/21 02:51 Carbon Dioxide 23 mmol/L (22-29) 12/12/21 02:51 Anion Gap 14.2 (5-19) 12/12/21 02:51 BUN 10 mg/dL (8-23) 12/12/21 02:51 Creatinine 1.0 mg/dL (0.7-1.2) 12/12/21 02:51 GFR Calculation 75.0 mL/min (90-130) L 12/12/21 02:51 Glucose 137 mg/dL (65-115) H 12/12/21 02:51 POC Glucose 127 mg/dL (70-110) H 12/10/21 11:22 Calculated Osmolality 299 mOsm/kg (285-295) H 12/12/21 02:51 Calcium 9.4 mg/dL (8.5-10.5) 12/12/21 02:51 Magnesium 1.2 mg/dL (1.7-2.3) L 12/11/21 03:52 Total Bilirubin 3.3 mg/dL (0.15-1.2) H 12/12/21 02:51 Direct Bilirubin 1.30 mg/dL (0.00-0.30) H 12/10/21 03:20 Indirect Bilirubin 1.40 12/10/21 03:20 AST 41 U/L (0-40) H 12/12/21 02:51 ALT 16 U/L (0-41) 12/12/21 02:51 Alkaline Phosphatase 89 IU/L (40-130) 12/12/21 02:51 Ammonia 95 umol/L (16-60) H 12/09/21 20:12 Troponin T Gen 5 ng/L 200 ng/L (0-15) H* 12/10/21 03:20 Troponin T Baseline 176 ng/L (0-15) H* 12/09/21 18:28 Troponin T 120 Minute 213.9 ng/L (0-15) H 12/09/21 20:03 Delta Troponin T 37.9 ABS# (0-10) H* 12/09/21 20:03 Total Protein 6.2 g/dL (6.6-8.7) L 12/12/21 02:51 Albumin 3.1 g/dL (3.5-5.2) L 12/12/21 02:51 Globulin 3.1 g/dL (1.3-4.6) 12/12/21 02:51 Lipase 47 U/L (13-60) 12/09/21 18:28 Procalcitonin 0.12 ng/mL (0-0.5) 12/11/21 03:52 TSH 1.98 uIU/mL (0.27-4.20) 12/09/21 18:28 Free T4 1.65 ng/dL (0.82-1.77) 12/09/21 18:28 Urine Color Dark yellow (Yellow) 12/09/21 17:38 Urine Appearance Clear (CLEAR) 12/09/21 17:38 Urine pH 5 (5-7) 03/08/22 17:38 Ur Specific [place] 1.020 (1.005-1.030) 12/09/21 17:38 Urine Protein 1+ (Negative) H 12/09/21 17:38 Urine Glucose (UA) Norm (Normal) 12/09/21 17:38 Urine Ketones Negative (Negative) 12/09/21 17:38 Urine Blood 3+ (Negative) H 12/09/21 17:38 Urine Nitrate Negative (Negative) 12/09/21 17:38 Urine Bilirubin 1+ (Negative) H 12/09/21 17:38 Urine Urobilinogen 4 mg/dL (Negative) H 12/09/21 17:38 Ur Leukocyte Esterase Negative (Negative) 12/09/21 17:38 Urine RBC >100 /hpf (0-2) H 12/09/21 17:38 Urine WBC 5-10 /hpf (0-5) H 12/09/21 17:38 Ur Squamous Epith Cells 0-4 /hpf (0-5) H 12/09/21 17:38 Amorphous Sediment Not Reportable 12/09/21 17:38 Urine Bacteria Trace /hpf (NONE) 12/09/21 17:38 Hyaline Casts 0-4 /lpf H 12/09/21 17:38 Urine Mucus Trace /hpf 12/09/21 17:38 Fluid Color Yellow 12/10/21 13:30 Fluid Appearance Clear 12/10/21 13:30 Fluid Specific Grav 1.015 12/10/21 13:30 Fluid pH 7.0 12/10/21 13:30 Fluid WBC 138 /uL 12/10/21 13:30 Fluid RBC 0 10^3/uL 12/10/21 13:30 Fld Polynuclear WBCs # 0.015 12/10/21 13:30 Fld Polynuclear WBCs % 10.900 % 12/10/21 13:30 Fl Mononucl WBCs #(Auto) 0.123 12/10/21 13:30 Fl Mononuclear % Auto 89.100 % 12/10/21 13:30 Fluid Glucose 137.0 mg/dL 12/10/21 13:30 Fluid Total Protein 0.9 g/dL 12/10/21 13:30 Fluid Albumin 0.6 g/dL 12/10/21 13:30 Fluid LDH 42 U/L 12/10/21 13:30 Fluid Amylase 21 U/L 12/10/21 13:30 Fluid Alk Phosphatase 10 IU/L 12/10/21 13:30 Fluid Cholesterol 20 mg/dL (0-200) 12/10/21 13:30 Fluid Triglycerides 51 mg/dL (0-150) 12/10/21 13:30 Fluid Uric Acid 10 mg/dL 12/10/21 13:30 Salicylates < 0.3 mg/dL (3-10) L 12/09/21 18:28 Urine Opiates Screen Negative ng/mL (Negative) 12/09/21 17:38 Acetaminophen < 5.0 ug/mL (10-30) L 12/09/21 18:28 Ur Barbiturates Screen Negative ng/mL (Negative) 12/09/21 17:38 Ur Phencyclidine Scrn Negative ng/mL (Negative) 12/09/21 17:38 Ur Amphetamines Screen Negative ng/mL (Negative) 12/09/21 17:38 U Benzodiazepines Scrn Negative ng/mL (Negative) 12/09/21 17:38 Urine Cocaine Screen Negative ng/mL (Negative) 12/09/21 17:38 U Marijuana (THC) Screen Negative ng/mL (Negative) 12/09/21 17:38 Ethyl Alcohol < 10 mg/dL (0-10) 12/09/21 20:03 HIV 1&2 Ab & HIV 1 Ag Non-reactive (Non-Reactiv) 12/10/21 03:20 HIV 1&2 Antibody Non-reactive (Non-Reactiv) 12/10/21 03:20 Blood Type O Negative 12/09/21 17:19 Rho(D) Type Negative 12/09/21 17:19 Antibody Screen Negative 12/09/21 17:19 Vitals Last Vital Signs Temp 98.3 F 12/12/21 04:00 Pulse 90 12/12/21 06:00 Resp 18 12/12/21 04:00 BP 157/82 12/12/21 04:00 Pulse Ox 99 12/12/21 04:00 Discharge Plan Discharge Patient Disposition: Home Condition: Stable Prescriptions: New furosemide 40 mg Tablet 60 mg PO DAILY@0800 Qty: 60 0RF spironolactone 25 mg Tablet 50 mg PO DAILY Qty: 60 0RF lactulose 10 gram/15 mL (15 mL) solution 20 g PO Q8H Qty: 1440 3RF Rx Instructions: until desired laxative effect rifaximin 550 mg tablet 550 mg PO BID Qty: 60 3RF Continued potassium chloride 10 mEq capsule, extended release 10 meq PO DAILY 0RF fluocinolone 0.025 % cream 1 applic TOPICAL DAILY 0RF Rx Instructions: apply small amount topically to the affected area every day metoprolol tartrate 25 mg Tablet 12.5 mg PO DAILY 0RF Discontinued trazodone 50 mg tablet 50 mg PO BEDTIME PRN (Reason: Insomnia) 0RF spironolactone 25 mg tablet 12.5 mg PO DAILY 0RF furosemide [Lasix] 20 mg tablet 20 mg PO Q7D 0RF Rx Instructions: on Wednesday Discharge Orders: Discharge Order (Routine); Ordered 12/12/21 Ordered By: Lissette Crane Other Ambulatory Orders: DME: [facility] (Order) Location: None Selected Ordered By: Lissette Crane Referrals: Moshe Bender [Primary Care Provider] - 12/19/21 10:20 am Anurag Staples MD [Referring] - 05/11/22 12:40 pm (LIver cirrhosis ) Discharge Diet: Cardiac Patient Instructions: Spironolactone (By mouth), Furosemide (By mouth), Lactulose (By mouth), Rifaximin (By mouth), Hepatic Encephalopathy (DC), Opioid Safety Discharge Attestations Time Spent in Discharge Care*: less than 30 min Quality Metrics Clinical Quality Measures [ No reported AMI, CVA or VTE this stay] Coding Level of Care Code Acute Chg FW DC note Diagnoses Chronic liver disease and cirrhosis K74.60; K76.9 Thrombocytopenia D69.6 Anasarca R60.1 Portal hypertension K76.6 Cirrhosis K74.60 Elevated troponin R77.8 Altered mental status R41.82 Acute hepatic encephalopathy K72.00 Chronic hepatitis C B18.2 Hypertension I10
[2021-12-12 07:34] VITALS: BP 158/77; PULSE 92; RESP 16; TEMP 37; O2SAT 92
[2021-12-12] MEDS: FUROsemide 40 mg Tablet PO (09:51)
[2021-12-12] MEDS: spironolactone 25 mg Tablet 50 MG PO (09:51)
[2021-12-12 10:20] VITALS: BP 158/77; PULSE 92; RESP 16; TEMP 37; O2SAT 92
--- NOTE | 2021-12-15 12:43 | PC.SOCIAL ---
Discussed with Mitzi at pharmacy that PA was approved but copay with insurance $1050 and on 340B plan still $[address]. [address] Crane and he indicates to disregard medication and no alternative needed at this time. Tried to update patient left message for his on cell phone listed for both he and requesting a call back. Called [facility] and asked to speak to Moshe Bender or nurse. They are seeing patients right now. Left message with accredited legal secretary Nichelle to update Moshe that patient was unable to get the Rifaximin (Xifaxin) at a reasonable cost therefore this drug has been stopped.
== END 2021-12-12 10:23 | disposition home or self-care (01) | DRG 433 ==
LOC: ER 21:08 → MEDSURG 21:28 → ICU 12-10 03:00 → MEDSURG 12-10 05:34 → ICU 12-10 23:05 → MEDSURG 12-10 23:11
PROVIDERS: Admitting Provider Student in an Organized Health Care Education/Training Program; Emergency Provider Emergency Medicine; PCP Clinical Nurse Specialist Adult Health; Visit Provider Internal Medicine
DX: K70.40 Alcoholic hepatic failure without coma (principal); K76.6 Portal hypertension; I85.10 Secondary esophageal varices without bleeding; B18.2 Chronic viral hepatitis C; F10.21 Alcohol dependence, in remission; D69.59 Other secondary thrombocytopenia; I10 Essential (primary) hypertension; L40.9 Psoriasis, unspecified; R29.810 Facial weakness; E83.42 Hypomagnesemia; E87.6 Hypokalemia; Z91.81 History of falling
CPT/HCPCS: 36415; 36416; 36600; 49083; 51702; 70450; 71045; 71250; 73070; 74176; 80053; 80306; 80307; 80500; 81001; 82042; 82140; 82150; 82247; 82248; 82465; 82803; 82945; 82962; 83615; 83690; 83735; 83986; 84075; 84145; 84157; 84315; 84439; 84443; 84478; 84484; 84560; 85025; 85610; 85730; 86850; 86900; 87040; 87070; 87075; 87086; 87205; 87806; 89050; 90471; 90715; 93005; 93306; 96365; 96366; 96367; 96372; 96375; 97110; 97161; 99285; C9113; J0456; J0696; J1650; J1940; J2060; J3475; J7050; P9047

== ENCOUNTER 2021-12-18 07:48 | Outpatient (CLI) | payer MEDICARE, SELFPAY ==
[2021-12-18 09:21] LABS: Reticulocyte % 3.4 % (0.5-2.0)
[2021-12-18 09:33] LABS: Alanine Aminotransferase 18 U/L (0-41); Albumin Level 2.7 g/dL (3.5-5.2); Alkaline Phosphatase 157 IU/L (40-130); Aspartate Amino Transferase 40 U/L (0-40); Blood Urea Nitrogen 20 mg/dL (8-23); Calcium 8.9 mg/dL (8.5-10.5); Carbon Dioxide 25 mmol/L (22-29); Chloride 101 mmol/L (98-107); Ferritin 719 ng/mL (30-400); Glomerular Filtration Rate 60.8 mL/min (90-130); Glucose 163 mg/dL (65-115); Iron 87 ug/dL (59-158); Osmolality Calculated 286 mOsm/kg (285-295); Percent Saturation 74.3 % (20-50); Sodium 135 mmol/L (136-145); Total Bilirubin 2.3 mg/dL (0.15-1.2); Total Iron Binding Capacity 117 mcg/dl; Total Protein 6.7 g/dL (6.6-8.7); Unsaturated Iron Binding 30 ug/dL (112-347)
[2021-12-18 09:48] LABS: Vitamin B12 1994 pg/mL (232-1245)
[2021-12-18 09:55] LABS: LAB Peripheral Smear Sent for Review
[2021-12-18 09:58] LABS: Basophils % 0.4 %; Eosinophils # 0.2 10^3/uL (0.0-0.8); Eosinophils % 4.1 %; Hematocrit 31.9 % (42.0-52.0); Hemoglobin 10.5 g/dL (11.7-16.6); Lymphocytes # 1.8 10^3/uL (0.8-4.8); Lymphocytes % 37.5 %; Mean Corpuscular HGB Conc 32.9 g/dL (30.0-36.0); Mean Corpuscular Hemoglobin 34.8 pg (28.0-34.0); Mean Corpuscular Volume 105.6 fl (80-94); Mean Platelet Volume 11.7 fL (7.4-10.4); Monocytes # 0.3 10^3/uL (0.2-0.9); Monocytes % 6.4 %; Neutrophils % 51.2 %; Nucleated Red Blood Cells % 0 %; Platelet Count 60 10^3/cmm (130-400); Red Blood Count 3.02 10^6/uL (4.1-5.3); Red Cell Distribution Width 18.7 % (12.1-15.1); White Blood Count 4.7 10^3/uL (4.0-10.0)
[2021-12-18 10:05] LABS: Hepatitis A Antibody IgM Non-Reactive (Nonreactive); Hepatitis B Core AB, Total Non-Reactive (Nonreactive); Hepatitis B Surface AB 4.5 (11.5-1000); Hepatitis B Surface Antigen Non-Reactive (Nonreactive); Hepatitis C Virus Antibody Reactive (Nonreactive)
[2021-12-18 10:09] LABS: Folate Level 10.8 ng/mL (4.5-32.2)
[2021-12-18 10:15] LABS: Slide Review Slide Review Perform
[2021-12-19 22:08] LABS: HEP C RNA Viral Load Quant <1.18 NOT DETECTED Log IU/mL (NOT DETECTED); HEP C RNA Viral Load Quant <15 NOT DETECTED IU/mL (NOT DETECTED)
--- NOTE | 2021-12-20 13:18 | ONC FU_ITS ---
Dr. Blanchard follow up note Patient: Simeon Graham Unit #: [id number]: 1955 Dicatated By: Imani Blanchard M.D.Date of Visit:Dec 18, 2021 Onc Med Follow-up/Prog Note History of Present Illness: Mr. Simeon Graham, is a 65-year-old gentleman with a history of hepatitis C, as per , patient was treated for hepatitis C by Dr. Hutson. As per patient and his patient has underlying liver problem and also longstanding history of heavy alcohol abuse and quit alcohol in May 2021. Also mentioned about history of high ammonia level in the past, do not recall seeing facility coordinator. Denies any nosebleed or gum bleed denies any hemoptysis or hematemesis denies any melena or hematochezia but dark-colored urine and jaundice. Denies any night sweats denies any weight loss, denies any recurrent fever, denies any peripheral lymphadenopathy but abdominal fullness, as per patient he has abdominal wall hernia. Also complaining of lower extremity edema which is a chronic problem. Hepatitis profile done on December 02, 2021 showed reactive hepatitis C antibody, Hepatitis C RNA quantitative less than 15 Patient was admitted to hospital on December 10, 2021 with altered mental status/confusion and progressive anasarca while on Lasix and diffuse rash over his face related to history of psoriasis, his lab work-up shows ammonia level 95, elevated total bilirubin and, patient was admitted to ICU with hepatic encephalopathy, patient underwent paracentesis and about 5 L of fluid was removed, because of thrombocytopenia thoracentesis was not considered for pleural effusion.Patient underwent CT scan of chest abdomen and pelvis while in hospital on December 09, 2021 which showed large left pleural effusion with left lung atelectasis and body wall edema more prominent in the left lateral chest wall, severe liver cirrhosis, portal vein hypertension with varices, large amount of ascites, cholelithiasis, no splenomegaly but portal vein hypertension with recanalized umbilical vein and splenic hilar varices CT head shows no acute changes Started on antibiotics, he was treated with albumin infusion , patient is overall condition continued to improve and he was discharged home on December 12, 2021 with follow-up with Dr. Blair, facility coordinator in [place], as per patient he is scheduled to see Dr. Pritchard on May 11, 2022 Came for follow-up, denies any specific complaints, no fever chills, no nausea or vomiting, no diarrhea constipation, no melena or hematochezia, no dysuria or hematuria, no gum bleed or nosebleed. Patient is feeling much better since paracentesis. Still has significant bilateral lower extremity edema., More alert and oriented Medications: Fluocinolone Acet-Niacinamide Cream Topical Take as Directed, Lactulose (20 g) Pack Oral q 8 hours PRN, Lasix 1 Tablet (of 60 mg) Oral, Magnesium 1 Tablet (of 250 mg) Oral daily, Metoprolol Tartrate 0.5 (25 mg) Tablet Oral b.i.d., Multi Vitamin Daily 1 Tablet Oral daily, Potassium (10 meq) Tablet Oral daily, rifAXIMin 1 Tablet (of 550 mg) Oral b.i.d., Spironolactone 0.5 Tablet (of 50 mg) Oral daily Allergies: Codeine Sulfate and traMADol HCl. Review of Systems: Review of Systems is not available for this patient. Vital Signs: Performed on Dec 18, 2021 09:43 Height - 68.00 in Weight - 206.6 lbs (LOW) BSA - 2.07 sq.m BMI - 31.41 (HIGH) Temperature - 97.0 F (LOW) Pulse - 53 /min (LOW) Respiration - 18 /min BP - 75/44 mm(hg) (LOW) O2 Sat - 94 % (LOW) Pain - 0 Fatigue - 8 Performance Status: 2 - Ambulatory/capable of all self-care, unable to perform any work activities. Up and about more than 50% of waking hours. (ECOG) Physical Examination: ENMT - Poor oral hygiene, no mouth sores, no jaundice, no thrush, Respiratory - Decreased breath sound at left lung base and few basilar rales bilaterally, Cardiovascular - Regular rate and rhythm of heart, Abdomen - Soft, bowel sounds present, fluid shift present, Extremities - 2+ edema bilaterally, Old healing ecchymosis involving upper extremities. Lab/Imaging: Most recent lab results are not available for this patient. Impression: Thrombocytopenia etiology could be multifactorial including splenic sequestration, underlying ITP especially with a history of hepatitis C, hepatitis C reactivation, platelet clumping, myelodysplasia, medications, Macrocytosis, could be nutritional History of hepatitis C, as per family initially diagnosed in late but ignored and eventually treated by Dr. Hutson in 2020. History of heavy alcohol abuse, quit in June 2021 Chronic lower extremity edema, abdominal hernia Jaundice, hepatic ailment, questionable cirrhosis Plan: Discussed with patient regarding his question and concern, he was recently discharged from hospital on December 12, 2021 where he was admitted for altered mental status due to hepatic encephalopathy as ammonia level was elevated and patient underwent therapeutic/diagnostic paracentesis to rule out SBO and CT scan of abdomen pelvis done on December 09, 2021 shows severe liver cirrhosis portal hypertension splenic varices but surprisingly no splenomegaly, And his lab work-up done during hospitalization showed white blood count 4.2 hemoglobin 9.5 hematocrit 26.7 platelets 45,000 on December 12, 2021, etiology of his bicytopenia e.g. anemia and thrombocytopenia is probably multifactorial including chronic blood loss due to portal hypertension causing varices, he may have esophageal varices or GI blood loss in addition to nutritional although his anemia work-up was inconclusive. As far as thrombocytopenia is concerned, again could be multifactorial but most likely due to splenic sequestration, surprisingly no splenomegaly seen on CT scan despite of portal hypertension and splenic varices. Other possibility could be myelodysplasia, or ITP, discussed with patient and his family, will repeat his CBC in 1 month if it shows worsening of thrombocytopenia will consider bone marrow to rule out primary marrow disorder like MDS or peripheral destruction, a bone marrow shows appropriate response, will consider trial of steroid with dexamethasone for possible underlying ITP, if no response other possibility could be splenic sequestration. Patient was advised to call in case any evidence of gross bleeding. Patient already was referred to facility coordinator in [place] for hepatic cirrhosis and related complications Signed By: Imani Blanchard M.D. <<Signature on File>>
== END 2021-12-18 07:49 | disposition home or self-care (01) ==
PROVIDERS: PCP Clinical Nurse Specialist Adult Health; Visit Provider Internal Medicine Hematology & Oncology
DX: B19.20 Unspecified viral hepatitis C without hepatic coma (principal); D69.6 Thrombocytopenia, unspecified; D75.89 Other specified diseases of blood and blood-forming organs; R60.0 Localized edema; R17 Unspecified jaundice; Z79.899 Other long term (current) drug therapy
CPT/HCPCS: 36415; 80053; 80500; 82607; 82728; 82746; 83540; 83550; 85025; 85045; 86705; 86706; 86709; 86803; 87340; 87522; 99214

== ENCOUNTER 2022-01-22 13:21 | Outpatient (CLI) | payer MEDICARE, SELFPAY ==
[2022-01-22 13:51] LABS: Basophils % 0.6 %; Eosinophils # 0.2 10^3/uL (0.0-0.8); Eosinophils % 3.7 %; Hematocrit 31.2 % (42.0-52.0); Hemoglobin 10.6 g/dL (11.7-16.6); Lymphocytes # 1.3 10^3/uL (0.8-4.8); Lymphocytes % 27.1 %; Mean Corpuscular Hemoglobin 35.9 pg (28.0-34.0); Mean Corpuscular Volume 105.8 fl (80-94); Mean Platelet Volume 11.4 fL (7.4-10.4); Monocytes # 0.3 10^3/uL (0.2-0.9); Monocytes % 6.7 %; Neutrophils # 2.85 10^3/uL (1.8-7.7); Neutrophils % 61.7 %; Nucleated Red Blood Cells % 0 %; Platelet Count 61 10^3/cmm (130-400); Red Blood Count 2.95 10^6/uL (4.1-5.3); Red Cell Distribution Width 15.9 % (12.1-15.1); White Blood Count 4.6 10^3/uL (4.0-10.0)
[2022-01-22 14:16] LABS: Alanine Aminotransferase 15 U/L (0-41); Albumin Level 2.9 g/dL (3.5-5.2); Alkaline Phosphatase 172 IU/L (40-130); Anion Gap 12.3 (5-19); Aspartate Amino Transferase 31 U/L (0-40); Blood Urea Nitrogen 18 mg/dL (8-23); Calcium 8.4 mg/dL (8.5-10.5); Carbon Dioxide 25 mmol/L (22-29); Chloride 101 mmol/L (98-107); Globulin 4.4 g/dL (1.3-4.6); Glucose 180 mg/dL (65-115); Osmolality Calculated 284 mOsm/kg (285-295); Potassium 4.3 mmol/L (3.5-5.1); Sodium 134 mmol/L (136-145); Total Bilirubin 2.2 mg/dL (0.15-1.2); Total Protein 7.3 g/dL (6.6-8.7)
--- NOTE | 2022-01-22 15:45 | ONC FU_ITS ---
Dr. Blanchard follow up note Patient: Simeon Graham Unit #: [id number]: 1955 Dicatated By: Imani Blanchard M.D.Date of Visit:Jan 22, 2022 Onc Med Follow-up/Prog Note History of Present Illness: Mr. Simeon Graham, is a 66-year-old gentleman with a history of hepatitis C, as per , patient was treated for hepatitis C by Dr. Hutson. As per patient and his patient has underlying liver problem and also longstanding history of heavy alcohol abuse and quit alcohol in May 2021. Also mentioned about history of high ammonia level in the past, do not recall seeing privacy compliance manager. Denies any nosebleed or gum bleed denies any hemoptysis or hematemesis denies any melena or hematochezia but dark-colored urine and jaundice. Denies any night sweats denies any weight loss, denies any recurrent fever, denies any peripheral lymphadenopathy but abdominal fullness, as per patient he has abdominal wall hernia. Also complaining of lower extremity edema which is a chronic problem. Hepatitis profile done on December 02, 2021 showed reactive hepatitis C antibody, Hepatitis C RNA quantitative less than 15 Patient was admitted to hospital on December 10, 2021 with altered mental status/confusion and progressive anasarca while on Lasix and diffuse rash over his face related to history of psoriasis, his lab work-up shows ammonia level 95, elevated total bilirubin and, patient was admitted to ICU with hepatic encephalopathy, patient underwent paracentesis and about 5 L of fluid was removed, because of thrombocytopenia thoracentesis was not considered for pleural effusion.Patient underwent CT scan of chest abdomen and pelvis while in hospital on December 09, 2021 which showed large left pleural effusion with left lung atelectasis and body wall edema more prominent in the left lateral chest wall, severe liver cirrhosis, portal vein hypertension with varices, large amount of ascites, cholelithiasis, no splenomegaly but portal vein hypertension with recanalized umbilical vein and splenic hilar varices CT head shows no acute changes Started on antibiotics, he was treated with albumin infusion , patient is overall condition continued to improve and he was discharged home on December 12, 2021 with follow-up with Dr. Blair, privacy compliance manager in [place], as per patient he is scheduled to see Dr. Pritchard on May 11, 2022 Came for follow-up, denies any specific complaints, no fever chills, no nausea or vomiting, no diarrhea or constipation, no melena hematochezia, no nausea or hematemesis, no abdominal pain, no dysuria or hematuria, no gum bleed or nosebleed. As per patient and family patient is scheduled to see Dr. Tillman , privacy compliance manager, and [facility] in [place] on February 28, 2022. Medications: Fluocinolone Acet-Niacinamide Cream Topical Take as Directed, Lactulose (20 g) Pack Oral q 8 hours PRN, Lasix 1 Tablet (of 60 mg) Oral, Magnesium 1 Tablet (of 250 mg) Oral daily, Multi Vitamin Daily 1 Tablet Oral daily, Potassium (10 meq) Tablet Oral daily, rifAXIMin 1 Tablet (of 550 mg) Oral b.i.d., Spironolactone 0.5 Tablet (of 50 mg) Oral daily Allergies: Codeine Sulfate and traMADol HCl. Review of Systems: Review of Systems is not available for this patient. Vital Signs: Performed on Jan 22, 2022 14:59 Height - 68.00 in Weight - 187 lbs (LOW) BSA - 1.99 sq.m BMI - 28.43 Temperature - 98.4 F Pulse - 63 /min Respiration - 18 /min BP - 133/72 mm(hg) O2 Sat - 99 % Pain - 0 Fatigue - 6 Performance Status: 2 - Ambulatory/capable of all self-care, unable to perform any work activities. Up and about more than 50% of waking hours. (ECOG) Physical Examination: ENMT - No mouth sores, no thrush, no cervical lymphadenopathy with mild jaundice, Respiratory - Lungs are clear to auscultation, Few basilar rales, Cardiovascular - Regular rate and rhythm of heart, Abdomen - Soft, bowel sounds present, Extremities - 2+ edema bilaterally. Lab/Imaging: Most recent lab results are not available for this patient. Impression: Thrombocytopenia etiology could be multifactorial including splenic sequestration, underlying ITP especially with a history of hepatitis C, hepatitis C reactivation, platelet clumping, myelodysplasia, medications, Macrocytosis, could be nutritional History of hepatitis C, as per family initially diagnosed in late but ignored and eventually treated by Dr. Hutson in 2020. History of heavy alcohol abuse, quit in June 2021 Chronic lower extremity edema, abdominal hernia Jaundice, hepatic ailment, questionable cirrhosis Plan: Discussed with patient regarding his labs white blood count 4.6 hemoglobin 10.6 hematocrit 31.2 platelets 61,000 compared to 60,000 previously on December 18, 2021 ANC 2850 CMP within normal limits except albumin 2.9 bilirubin 2.2 alk phos 172 Clinically, patient is doing reasonably well, no new signs symptoms his lab work-up shows moderate but stable thrombocytopenia, moderate but stable anemia, normal white blood cell/neutrophils. Etiology of moderate anemia/thrombocytopenia is multifactorial including splenic sequestration, patient has underlying cirrhosis causing portal hypertension., As patient has history of hepatitis C in the past other possibility could be low-grade ITP causing thrombocytopenia. Patient is scheduled to see Dr. Tillman, privacy compliance manager at [facility] in [place] on February 20, 2022. In the meantime we will continue to monitor, as mentioned earlier during his follow-up, we will consider bone marrow evaluation if there is a further progression in his hemoglobin or thrombocytopenia. Return to clinic in 2 months with CBC Signed By: Imani Blanchard M.D. <<Signature on File>>
== END 2022-01-22 13:22 | disposition home or self-care (01) ==
LOC: ONCMED 13:26
PROVIDERS: PCP Clinical Nurse Specialist Adult Health; Visit Provider Internal Medicine Hematology & Oncology
DX: D69.6 Thrombocytopenia, unspecified (principal); B19.20 Unspecified viral hepatitis C without hepatic coma; R60.0 Localized edema; R17 Unspecified jaundice; K46.9 Unspecified abdominal hernia without obstruction or gangrene; D75.89 Other specified diseases of blood and blood-forming organs; Z79.899 Other long term (current) drug therapy
CPT/HCPCS: 36415; 80053; 85025; 99214

== ENCOUNTER → 2022-07-13 11:20 | Outpatient (BNVA) | payer MEDICARE, SELFPAY | PROVIDERS: PCP Clinical Nurse Specialist Adult Health; Visit Provider Clinical Nurse Specialist Adult Health | DX: I10 Essential (primary) hypertension (principal); K76.9 Liver disease, unspecified | CPT/HCPCS: 80048 ==

== ENCOUNTER 2022-09-14 12:55 | Oncology outpatient (recurring) (ONCR) | payer MEDICARE, SELFPAY ==
[2022-09-14 13:36] LABS: Basophils % 0.4 %; Eosinophils # 0.2 10^3/uL (0.0-0.8); Eosinophils % 3.6 %; Hematocrit 36.1 % (42.0-52.0); Lymphocytes # 1.3 10^3/uL (0.8-4.8); Lymphocytes % 26.5 %; Mean Corpuscular HGB Conc 33.2 g/dL (30.0-36.0); Mean Corpuscular Hemoglobin 33.8 pg (28.0-34.0); Mean Corpuscular Volume 101.7 fl (80-94); Mean Platelet Volume 11.5 fL (7.4-10.4); Monocytes # 0.4 10^3/uL (0.2-0.9); Monocytes % 7.4 %; Neutrophils # 3.11 10^3/uL (1.8-7.7); Neutrophils % 61.9 %; Nucleated Red Blood Cells % 0 %; Platelet Count 65 10^3/cmm (130-400); Red Blood Count 3.55 10^6/uL (4.1-5.3); Red Cell Distribution Width 14.3 % (12.1-15.1)
== END 2022-10-03 23:59 | disposition home or self-care (01) ==
PROVIDERS: PCP Clinical Nurse Specialist Adult Health; Visit Provider Internal Medicine Hematology & Oncology
DX: D69.6 Thrombocytopenia, unspecified (principal); D64.9 Anemia, unspecified; Z86.19 Personal history of other infectious and parasitic diseases; F10.11 Alcohol abuse, in remission
CPT/HCPCS: 36415; 85025; 99214

== ENCOUNTER → 2022-10-12 12:02 | Outpatient (BNVA) | payer MEDICARE, SELFPAY | PROVIDERS: PCP Clinical Nurse Specialist Adult Health; Visit Provider Clinical Nurse Specialist Adult Health | DX: I10 Essential (primary) hypertension (principal) | CPT/HCPCS: 80053 ==

== ENCOUNTER 2023-02-01 11:01 | Outpatient (CLI) | payer MEDICARE, SELFPAY ==
[2023-02-01 11:52] LABS: Basophils % 0.4 %; Eosinophils # 0.1 10^3/uL (0.0-0.8); Eosinophils % 2.2 %; Hematocrit 38.7 % (42.0-52.0); Hemoglobin 13.1 g/dL (11.7-16.6); Mean Corpuscular HGB Conc 33.9 g/dL (30.0-36.0); Mean Corpuscular Hemoglobin 32.9 pg (28.0-34.0); Mean Corpuscular Volume 97.2 fl (80-94); Mean Platelet Volume 11.2 fL (7.4-10.4); Monocytes # 0.3 10^3/uL (0.2-0.9); Monocytes % 5.3 %; Neutrophils # 3.67 10^3/uL (1.8-7.7); Neutrophils % 71.9 %; Nucleated Red Blood Cells % 0 %; Platelet Count 74 10^3/cmm (130-400); Red Blood Count 3.98 10^6/uL (4.1-5.3); Red Cell Distribution Width 14.1 % (12.1-15.1); White Blood Count 5.1 10^3/uL (4.0-10.0)
[2023-02-01 12:08] LABS: INR 1.18 (0.8-1.2)
[2023-02-01 12:09] LABS: Partial Thromboplastin Time 35.8 SECONDS (23.9-36.7)
[2023-02-01 12:22] LABS: Tumor Marker Alpha Fetoprotein 5.2 ng/mL (0-8.3)
[2023-02-01 12:34] LABS: Alanine Aminotransferase 17 U/L (0-41); Albumin Level 3.6 g/dL (3.5-5.2); Alkaline Phosphatase 121 U/L (40-130); Aspartate Amino Transferase 31 U/L (0-40); Blood Urea Nitrogen 14 mg/dL (8-23); Calcium 9.4 mg/dL (8.5-10.5); Carbon Dioxide 24 mmol/L (22-29); Chloride 104 mmol/L (98-107); Globulin 3.8 g/dL (1.3-4.6); Glomerular Filtration Rate 84.2 mL/min (90-130); Glucose 186 mg/dL (65-115); Osmolality Calculated 293 mOsm/kg (285-295); Sodium 139 mmol/L (136-145); Total Bilirubin 0.9 mg/dL (0.15-1.2); Total Protein 7.4 g/dL (6.6-8.7)
== END 2023-02-01 11:02 | disposition home or self-care (01) ==
LOC: LAB 11:17
PROVIDERS: PCP Clinical Nurse Specialist Adult Health; Visit Provider Radiology Diagnostic Radiology
DX: C22.0 Liver cell carcinoma (principal)
CPT/HCPCS: 36415; 80053; 82105; 85025; 85610; 85730